=== PATIENT | male | born 1990 | race Caucasian/White ===

== ENCOUNTER → 2018-05-19 10:17 | Outpatient (CLI) | payer MEDICAID, SELFPAY ==
[2018-05-19 11:42] LABS: Hemoglobin A1c 10.6 % (4.2-6.3)
[2018-05-19 11:56] LABS: ALB/GLOB Ratio 0.9 RATIO (0.9-2.4); AST(SGOT) 18 U/L (15-37); Alanine Aminotransfer ALT/SGPT 20 U/L (16-61); Albumin, Serum 3.6 g/dL (3.2-5.0); Alkaline Phosphatase 127 U/L (45-117); Anion Gap 9 (5-15); BUN 15 mg/dL (7-18); BUN/Creat Ratio 13.2 RATIO (10-20); Calcium,Total 9.4 mg/dL (8.5-10.1); Chloride 104 mmol/L (98-107); Cholesterol 198 mg/dL (200); Creatinine, Serum 1.14 mg/dL (0.70-1.30); EST Glomerular Filtration Rate 83 mL/min (>60); Est Glom Filt Rate - Afr Amer 100 mL/min (>60); Globulin 4.2 g/dL (2.2-4.2); Glucose 102 mg/dL (74-106); High Density Lipoprotein 41 mg/dL; Potassium 4.5 mmol/L (3.5-5.1); Protein, Total 7.8 g/dL (6.4-8.2); Sodium Level 143 mmol/L (136-145); Thyroid Stim Hormone (TSH) 2.51 uIU/mL (0.358-3.74); Triglycerides 160 mg/dL; Very Low Density Lipoprotein 32 mg/dL (5-40)
[2018-05-19 11:59] LABS: Microalbumin:Creatinine Ratio 1037.5 mg/g CRE (<30 mg/g CRE)
== END ==
PROVIDERS: Visit Provider Nurse Practitioner
DX: E10.65 Type 1 diabetes mellitus with hyperglycemia (principal); E10.69 Type 1 diabetes mellitus with other specified complication; E78.5 Hyperlipidemia, unspecified; I10 Essential (primary) hypertension
CPT/HCPCS: 36415; 80053; 80061; 82043; 82570; 83036; 84443

== ENCOUNTER → 2018-07-30 09:49 | Outpatient (CLI) | payer MEDICAID, SELFPAY ==
[2018-07-30 10:54] LABS: ALB/GLOB Ratio 0.7 RATIO (0.9-2.4); AST(SGOT) 16 U/L (15-37); Alanine Aminotransfer ALT/SGPT 22 U/L (16-61); Albumin, Serum 3.1 g/dL (3.2-5.0); Alkaline Phosphatase 140 U/L (45-117); Anion Gap 9 (5-15); BUN 16 mg/dL (7-18); BUN/Creat Ratio 12.3 RATIO (10-20); Calcium,Total 8.9 mg/dL (8.5-10.1); Chloride 101 mmol/L (98-107); EST Glomerular Filtration Rate 71 mL/min (>60); Est Glom Filt Rate - Afr Amer 86 mL/min (>60); Globulin 4.3 g/dL (2.2-4.2); Glucose 357 mg/dL (74-106); Potassium 4.9 mmol/L (3.5-5.1); Protein, Total 7.4 g/dL (6.4-8.2); Sodium Level 137 mmol/L (136-145); Thyroid Stim Hormone (TSH) 3.35 uIU/mL (0.358-3.74)
== END ==
PROVIDERS: Visit Provider Nurse Practitioner
DX: E10.65 Type 1 diabetes mellitus with hyperglycemia (principal); Z79.4 Long term (current) use of insulin
CPT/HCPCS: 36415; 80053; 84443

== ENCOUNTER → 2018-11-06 09:44 | Outpatient (CLI) | payer MEDICAID, SELFPAY ==
[2018-11-06 09:14] VITALS: BMI 26.8
[2018-11-06 11:21] LABS: ALB/GLOB Ratio 0.9 RATIO (0.9-2.4); AST(SGOT) 17 U/L (15-37); Alanine Aminotransfer ALT/SGPT 18 U/L (16-61); Albumin, Serum 3.1 g/dL (3.2-5.0); Alkaline Phosphatase 126 U/L (45-117); Anion Gap 7 (5-15); BUN 18 mg/dL (7-18); BUN/Creat Ratio 14.1 RATIO (10-20); Calcium,Total 8.7 mg/dL (8.5-10.1); Chloride 104 mmol/L (98-107); Creatinine, Serum 1.28 mg/dL (0.70-1.30); EST Glomerular Filtration Rate 72 mL/min (>60); Est Glom Filt Rate - Afr Amer 87 mL/min (>60); Globulin 3.5 g/dL (2.2-4.2); Glucose 361 mg/dL (74-106); Potassium 3.8 mmol/L (3.5-5.1); Protein, Total 6.6 g/dL (6.4-8.2); Sodium Level 139 mmol/L (136-145)
[2018-11-06 11:22] LABS: Hemoglobin A1c 9.9 % (4.2-6.3)
[2018-11-06 11:33] LABS: Microalbumin:Creatinine Ratio 4661.6 mg/g CRE (<30 mg/g CRE)
[2018-11-06 15:53] LABS: Bacteria 0 SEEN /hpf (None Seen); Mucous, Urine 0 SEEN /hpf (<or=2+); Squamous Epithelial Cells - UA 0 SEEN /hpf (0-5); White Blood Cells 0 SEEN /hpf (0-5)
[2018-11-06 16:50] LABS: Color, Urine Straw (Yellow); Glucose, Dipstick 1000 mg/dl (Normal); Ketone-Dipstick Negative (Negative); Leukocyte Esterase-Dipstick Negative /ul (Negative); Nitrite-Dipstick Negative (Negative); Occult Blood-Urine 250 /ul (Negative); Protein-Dipstick 100 mg/dl (Negative); Specific Gravity, Urine 1.005 (1.002-1.030); Urine Bilirubin Dipstick Negative (Negative); Urine Clarity Clear (Clear); Urine Urobilinogen Normal (Normal)
[2018-11-06 18:31] LABS: Red Blood Cells-Urine 10-25 SEEN /hpf (0-5)
== END ==
PROVIDERS: Referring Provider Nurse Practitioner; Visit Provider Nurse Practitioner
DX: E10.65 Type 1 diabetes mellitus with hyperglycemia (principal); R80.9 Proteinuria, unspecified
CPT/HCPCS: 36415; 80053; 81001; 82043; 82570; 83036

== ENCOUNTER → 2021-09-26 14:26 | Outpatient (CLI) | payer MEDICAID, SELFPAY ==
[2021-09-26 17:14] LABS: Vitamin D,25 Hydroxy 10.6 ng/mL
[2021-09-26 17:21] LABS: ALB/GLOB Ratio 0.6 RATIO (0.9-2.4); AST(SGOT) 22 U/L (15-37); Alanine Aminotransfer ALT/SGPT 25 U/L (16-61); Albumin, Serum 2.8 g/dL (3.2-5.0); Alkaline Phosphatase 149 U/L (45-117); Anion Gap 6 (5-15); BUN 22 mg/dL (7-18); BUN/Creat Ratio 9.6 RATIO (10-20); Calcium,Total 9.2 mg/dL (8.5-10.1); Chloride 106 mmol/L (98-107); Cholesterol 207 mg/dL (200); Creatinine, Serum 2.29 mg/dL (0.70-1.30); EST Glomerular Filtration Rate 36 mL/min (>60); Est Glom Filt Rate - Afr Amer 44 mL/min (>60); Globulin 4.8 g/dL (2.2-4.2); Glucose 153 mg/dL (74-106); High Density Lipoprotein 61 mg/dL; Potassium 5.1 mmol/L (3.5-5.1); Protein, Total 7.6 g/dL (6.4-8.2); Sodium Level 139 mmol/L (136-145); Thyroid Stim Hormone (TSH) 1.32 uIU/mL (0.358-3.74); Triglycerides 91 mg/dL; Very Low Density Lipoprotein 18 mg/dL (5-40)
[2021-09-28 08:43] LABS: Thyroid Peroxidase AB 9 IU/mL (0-34)
== END ==
PROVIDERS: Referring Provider Internal Medicine Endocrinology, Diabetes & Metabolism; Visit Provider Internal Medicine Endocrinology, Diabetes & Metabolism
DX: E10.65 Type 1 diabetes mellitus with hyperglycemia (principal); E55.9 Vitamin D deficiency, unspecified; I10 Essential (primary) hypertension
CPT/HCPCS: 36415; 80053; 80061; 82043; 82306; 82570; 84443; 86376

== ENCOUNTER 2022-01-18 13:39 | Outpatient (CLI) | payer MEDICAID, SELFPAY ==
[2022-01-18 15:40] LABS: ALB/GLOB Ratio 0.8 RATIO (0.9-2.4); AST(SGOT) 44 U/L (15-37); Alanine Aminotransfer ALT/SGPT 64 U/L (16-61); Albumin, Serum 3.3 g/dL (3.2-5.0); Alkaline Phosphatase 171 U/L (45-117); Anion Gap 4 (5-15); BUN 34 mg/dL (7-18); BUN/Creat Ratio 12.5 RATIO (10-20); Calcium,Total 9.6 mg/dL (8.5-10.1); Chloride 107 mmol/L (98-107); Creatinine, Serum 2.73 mg/dL (0.70-1.30); EST Glomerular Filtration Rate 29 mL/min (>60); Est Glom Filt Rate - Afr Amer 36 mL/min (>60); Globulin 4.4 g/dL (2.2-4.2); Glucose 163 mg/dL (74-106); Potassium 5.1 mmol/L (3.5-5.1); Protein, Total 7.7 g/dL (6.4-8.2); Sodium Level 137 mmol/L (136-145)
== END 2022-01-18 23:59 | disposition home or self-care (01) ==
LOC: BIMLAB 13:40
PROVIDERS: Referring Provider Nurse Practitioner Family; Visit Provider Nurse Practitioner Family
DX: E10.22 Type 1 diabetes mellitus with diabetic chronic kidney disease (principal); E10.65 Type 1 diabetes mellitus with hyperglycemia; N18.30 Chronic kidney disease, stage 3 unspecified
CPT/HCPCS: 36415; 80053

== ENCOUNTER 2022-07-25 13:23 | Emergency (ER) | payer MEDICAID, SELFPAY ==
[2022-07-25 13:24] VITALS: BP 177/117; PULSE 119; RESP 16; TEMP 36.8; O2SAT 100; BMI 22.9
--- NOTE | 2022-07-25 13:47 | EX.ED.DYSGE1 ---
HPI History of Present Illness Chief Complaint: Hyperglycemia Informant: patient Onset/Context/Timing Onset: Weeks (1) Context: Gradual Onset Timing: Continuous Quality: thirsty, polyuria Current Severity: Moderate Maximum Severity: Moderate Worsened by: nothing Relieved by: nothing despite insulin boluses and drinking water Associated Symptoms Associated Symptoms: none Narrative Narrative: Patient presenting with hyperglycemia over 600 today. He was seen in endocrinology because for the last month he has not had a wireless blood sugar transmitter. He does have an insulin pump, usually works automatically off of the transmitter data, and since he has not had this he has been doing manual boluses with the pump. For the last week he has had symptoms of high blood sugar. He denies any dyspnea or nausea/vomiting, fevers, or other illness. He got a new wireless transmitter placed in the office today prior to being sent here. [facility] Medical History Anxiety with depression Bone fracture Diabetes mellitus type 1 High cholesterol HTN (hypertension) Neuropathy Persistent microalbuminuria due to type 1 diabetes mellitus Stage 3 chronic kidney disease due to type 1 diabetes mellitus Stomach ulcer Vision problem Vitamin deficiency Home Medications ademlog See Rx Instructions subcut .COMPLEX #20 mL 05/19/18 [Rx Last Taken Unknown] blood sugar diagnostic (OneTouch Ultra Blue Test Strip) #120 ea 07/09/18 [Rx Last Taken Unknown] FreeStyle Sharonda 14 Day Sensor (flash glucose sensor) #2 ea 09/26/21 [Rx Last Taken Unknown] insulin aspart U-100 100 unit/mL (3 mL) subcutaneous pen (Novolog Flexpen U-100 Insulin aspart) 15 unit (0.15 mL) subcut TID #15 mL 09/26/21 [Rx Last Taken Unknown] losartan 25 mg tablet 25 mg PO 09/26/21 [History Last Taken Unknown] pen needle, diabetic 32 gauge x 5/32 (BD Ultra-Fine Kalie Pen Needle) #150 ea 09/26/21 [Rx Last Taken Unknown] Levemir FlexTouch U-100 Insuln 100 unit/mL (3 mL) subcutaneous pen (insulin detemir U-100) 18 unit (0.18 mL) subcut QHS #15 mL 10/29/21 [Rx Last Taken Unknown] amlodipine 10 mg tablet 10 mg PO DAILY #90 tabs 01/18/22 [Rx Last Taken Unknown] cholecalciferol (vitamin D3) 1,250 mcg (50,000 unit) capsule 1,250 mcg PO QWEEK #24 caps 01/18/22 [Rx Last Taken Unknown] insulin aspart U-100 100 unit/mL subcutaneous solution (Novolog U-100 Insulin aspart) 100 unit continuous subcutaneous infusion .continuous #30 mL 02/15/22 [Rx Last Taken Unknown] metoprolol succinate 25 mg tablet,extended release 24 hr 25 mg PO DAILY #90 tabs 07/25/22 [Rx Last Taken Unknown] Allergy/AdvReac Type Severity Reaction Status Date / Time shellfish derived Allergy Swelling Verified 07/25/22 13:24 sulfamethoxazole Allergy Itching Verified 07/25/22 13:24 [From Bactrim] trimethoprim [From Bactrim] Allergy Itching Verified 07/25/22 13:24 Family History Unknown Arthritis Diabetes Hypertension High cholesterol Kidney stones Grandmother Diabetes Other Alcohol abuse Surgical History History of tonsillectomy L femur repair Social History Smoking Status: Current every day smoker tobacco type: cigarettes Tobacco: How many years used: 13 alcohol intake: never substance use type: does not use what type of physical activity do you participate in: none ROS ROS ED Constitutional Constitutional ED: Denies chills or fever(s) Eyes Eyes: Denies change in vision or diplopia ENT ENT ED: Denies rhinorrhea or sore throat Cardiovascular Cardiovascular: Denies chest pain or palpitations Respiratory/Chest Respiratory/Chest: Denies cough or dyspnea Gastrointestinal Gastrointestinal: Denies abdominal pain, diarrhea, nausea or vomiting Genitourinary Genitourinary ED: Denies dysuria or hematuria Musculoskeletal Musculoskeletal: Denies back pain or neck pain Integumentary Denies abscess or rash Neurologic Neurologic: Denies headache(s), paresthesias or weakness Psychiatric Psychiatric: Denies anxiety or suicidal thoughts Endocrine Endocrinology: Reports polydipsia and polyuria EXAM Physical Exam Const Vital Signs: 07/25/22 13:24 07/25/22 14:22 Temperature 98.2 F Temperature Source Temporal Pulse Rate 119 H Respiratory Rate 16 Respiratory Effort Normal Non-Labored Respiratory Pattern Normal Blood Pressure 177/117 H Blood Pressure Mean 137 Pulse Ox 100 Oxygen Delivery Method Room Air Positive well nourished and well developed General Appearance ED: well developed and NAD HEENT Reports moist mucous membranes normocephalic and atraumatic Eyes PERRL and EOMs intact bilaterally Neck full ROM and supple Resp normal respiratory effort and clear to auscultation bilaterally Cardio regular rate, regular rhythm and no murmurs Rate: tachycardic GI non-tender and non-distended Auscultation: normoactive bowel sounds Palpation: soft Back/Spine no CVA tenderness General Back: other FROM Extremity normal to inspection General Extremety ED: Negative for edema, pulses abnormal or tenderness General Extremity: Negative for edema or pulses abnormal Neuro oriented x3, CN's II-XII intact bilaterally and no sensory deficits noted Sensorium / Orientation: awake and alert Motor Exam: strength 5/5 throughout Skin no rashes or lesions noted and no wounds MDM MDM MDM Narrative Medical decision making narrative: Labs show that the patient's glucose is in the 240-290 range. Therefore prior to starting it, the insulin drip was discontinued, he does not have an elevated anion gap or low bicarbonate, he was given a liter of IV fluids, and discharged home, he is comfortable bolusing himself with insulin as his pump now works automatically. Lab Data Attestation: I reviewed the patient's lab results. Labs: Laboratory Results - last 24 hr 07/25/22 07/25/22 13:53 14:03 Sodium 140 Potassium 4.3 Chloride 107 Carbon Dioxide 23.0 Anion Gap 10 BUN 40 H Creatinine 3.44 H Estim Creat Clear Calc 26.29 Est GFR (MDRD) Af Amer 27 L Est GFR (MDRD) Non-Af 22 L BUN/Creatinine Ratio 11.6 Glucose 287 H Calcium 9.5 POC Glucose 247 H Discharge Plan Triage Chief Complaint: Hyperglycemia ED Provider: Rufus Barnhart Dx/Rx/DC Orders Clinical Impression: Hyperglycemia due to type 1 diabetes mellitus, Uncontrolled type 1 diabetes mellitus, with long-term current use of insulin, CKD (chronic kidney disease) stage 4, GFR 15-29 ml/min Instructions: ED Diabetic Hyperglycemia Prescriptions: No Action ademlog See Rx Instructions SC .COMPLEX Qty: 20 11RF Dose Instruction: SC Rx Instructions: Takes 15-20 units each meal three times daily losartan 25 mg tablet 25 mg PO insulin aspart U-100 [Novolog Flexpen U-100 Insulin] 100 unit/mL (3 mL) insulin pen 15 unit subcut TID MDD 60 Qty: 15 5RF (DME) pen needle, diabetic [BD Ultra-Fine Kalie Pen Needle] 32 gauge x 5/32 needle See Rx Instructions .ROUTE .MEDSUPPLY Qty: 150 5RF Rx Instructions: 5 times daily (DME) FreeStyle Sharonda 14 Day Sensor Kit See Rx Instructions .ROUTE .MEDSUPPLY Qty: 2 6RF Rx Instructions: As directed cholecalciferol (vitamin D3) 1,250 mcg (50,000 unit) capsule 1,250 mcg PO QWEEK Qty: 24 0RF amlodipine 10 mg tablet 10 mg PO DAILY Qty: 90 3RF metoprolol succinate 25 mg tablet extended release 24 hr 25 mg PO DAILY Qty: 90 1RF (DME) blood sugar diagnostic [OneTouch Ultra Blue Test Strip] strip See Dose Instructions .ROUTE .MEDSUPPLY Qty: 120 11RF Dose Instruction: As directed Rx Instructions: use to check BG 4 x qd Levemir FlexTouch U-100 Insuln 100 unit/mL (3 mL) insulin pen 18 unit subcut QHS Qty: 15 5RF insulin aspart U-100 [Novolog U-100 Insulin aspart] 100 unit/mL solution 100 unit continuous subcutaneous infusion .continuous MDD 100 Qty: 30 6RF Primary Care Provider: Holley Roach Referrals: Holley Roach MD [Primary Care Provider] - As Needed (And/or your it intern) Disposition Disposition: Home, Self Care
[2022-07-25] MEDS: 0.9% Normal Saline 1,000 ML 999 ML IV (14:00)
--- NOTE | 2022-07-25 14:10 | ED.RN ---
had pt turn off insulin pump due to, pt we were going to hand insulin drip. Bs 247. notified Dr. Barnhart. of pt's BS. gave order to hang NS fluids, turn insulin pump back on and check BS after fluids.
[2022-07-25 14:20] LABS: Anion Gap 10 (5-15); BUN 40 mg/dL (7-18); BUN/Creat Ratio 11.6 RATIO (10-20); Calcium,Total 9.5 mg/dL (8.5-10.1); Chloride 107 mmol/L (98-107); Creatinine, Serum 3.44 mg/dL (0.70-1.30); EST Glomerular Filtration Rate 22 mL/min (>60); Est Glom Filt Rate - Afr Amer 27 mL/min (>60); Estimated Creatinine Clearance 26.29 ml/min; Glucose 287 mg/dL (74-106); Potassium 4.3 mmol/L (3.5-5.1); Sodium Level 140 mmol/L (136-145)
[2022-07-25 14:20] LABS: Bedside Glucose 247 mg/dL (74-106)
--- NOTE | 2022-07-25 15:18 | ED.RN ---
pt's BS 64, gave food. notified Dr. Barnhart of this.
[2022-07-25 15:31] LABS: Bedside Glucose 64 mg/dL (74-106)
[2022-07-25 16:06] LABS: Bedside Glucose 55 mg/dL (74-106)
[2022-07-25 16:30] LABS: Bedside Glucose 126 mg/dL (74-106)
== END 2022-07-25 16:17 | disposition home or self-care (01) ==
PROVIDERS: Emergency Provider Emergency Medicine; PCP Internal Medicine; Visit Provider Emergency Medicine
DX: E10.65 Type 1 diabetes mellitus with hyperglycemia (principal); E10.40 Type 1 diabetes mellitus with diabetic neuropathy, unspecified; E10.22 Type 1 diabetes mellitus with diabetic chronic kidney disease; N18.4 Chronic kidney disease, stage 4 (severe); Z79.4 Long term (current) use of insulin; F41.8 Other specified anxiety disorders; E78.00 Pure hypercholesterolemia, unspecified; I12.9 Hypertensive chronic kidney disease with stage 1 through stage 4 chronic kidney disease, or unspecified chronic kidney disease; Z87.19 Personal history of other diseases of the digestive system; Z79.899 Other long term (current) drug therapy
CPT/HCPCS: 36415; 80048; 80053; 82962; 96360; 99283; A4216

== ENCOUNTER → 2022-07-25 | Outpatient (CLI) | payer MEDICAID, SELFPAY ==
[2022-07-25 12:30] LABS: ALB/GLOB Ratio 0.8 RATIO (0.9-2.4); AST(SGOT) 22 U/L (15-37); Alanine Aminotransfer ALT/SGPT 32 U/L (16-61); Albumin, Serum 3.5 g/dL (3.2-5.0); Alkaline Phosphatase 140 U/L (45-117); Anion Gap 8 (5-15); BUN 39 mg/dL (7-18); BUN/Creat Ratio 10.9 RATIO (10-20); Chloride 101 mmol/L (98-107); Creatinine, Serum 3.57 mg/dL (0.70-1.30); EST Glomerular Filtration Rate 22 mL/min (>60); Est Glom Filt Rate - Afr Amer 26 mL/min (>60); Globulin 4.3 g/dL (2.2-4.2); Glucose 685 mg/dL (74-106); Potassium 4.9 mmol/L (3.5-5.1); Protein, Total 7.8 g/dL (6.4-8.2); Sodium Level 134 mmol/L (136-145)
== END | disposition home or self-care (01) ==
LOC: LAB 10:19
PROVIDERS: PCP Internal Medicine; Referring Provider Nurse Practitioner Family; Visit Provider Nurse Practitioner Family
DX: E10.22 Type 1 diabetes mellitus with diabetic chronic kidney disease (principal); E10.65 Type 1 diabetes mellitus with hyperglycemia; N18.4 Chronic kidney disease, stage 4 (severe); I12.9 Hypertensive chronic kidney disease with stage 1 through stage 4 chronic kidney disease, or unspecified chronic kidney disease
CPT/HCPCS: 36415; 80053

== ENCOUNTER → 2022-12-12 | Outpatient (CLI) | payer MEDICAID, SELFPAY ==
[2022-12-14 15:09] LABS: Cytoplasmic Ab (C-ANCA) <1:20 titer (Neg:<1:20); PROEL- A/G Ratio 1.2 (0.7-1.7); PROEL- Albumin 3.6 g/dL (2.9-4.4); PROEL- Alpha-1 Globulin 0.3 g/dL (0.0-0.4); PROEL- Beta Globulin 0.8 g/dL (0.7-1.3); PROEL- Globulin, Total 3.1 g/dL (2.2-3.9); PROEL- TOTAL PROTEIN 6.7 g/dL (6.0-8.5)
[2022-12-14 20:11] LABS: Anti-dsDNA Ab <1 IU/mL (0-9); Complement C3 112 mg/dL (82-167); Perinuclear Ab (P-ANCA) <1:20 titer (Neg:<1:20)
== END | disposition home or self-care (01) ==
LOC: LAB 14:42
PROVIDERS: PCP Internal Medicine; Referring Provider Internal Medicine Nephrology; Visit Provider Internal Medicine Nephrology
DX: R80.9 Proteinuria, unspecified (principal)
CPT/HCPCS: 36415; 84165; 86160; 86225; 86256

== ENCOUNTER → 2022-12-15 | Outpatient (CLI) | payer MEDICAID, SELFPAY ==
--- NOTE | 2022-12-15 11:23 | US_ITS ---
STUDY: RENAL ULTRASOUND - COMPLETE REASON FOR EXAM: Male, 32 years old. Elevated BUN/creatinine TECHNIQUE: Ultrasound evaluation of the kidneys was performed with real-time and static hays-scale imaging. COMPARISON: None. FINDINGS: RIGHT KIDNEY: Normal location of the right kidney, which is normal in size. The right kidney measures 10.4 x 5.1 x 6.4 cm. There is a normal cortex of the right kidney. The renal cortex measures 1.8 cm. There is a simple 2.2 cm cyst. There are no right renal calculi. There is no right hydronephrosis. DISTAL RIGHT URETER: There is non-visualization of the distal right ureter. There is no demonstrated right ureterovesical junction calculus. There is a visualized right ureteral jet. LEFT KIDNEY: Normal location of the left kidney, which is normal in size. The left kidney measures 10.5 x 4.1 x 5.6 cm. There is a normal cortex of the left kidney. The renal cortex measures 1.8 cm. There is a simple 2.7 cm cyst. There are no left renal calculi. There is no left hydronephrosis. DISTAL LEFT URETER: There is non-visualization of the distal left ureter. There is no demonstrated left ureterovesical junction calculus. There is a visualized left ureteral jet. AORTA: There is no elongation or tortuosity of the abdominal aorta. I.V.C.: The IVC is patent. BLADDER: The bladder was incompletely distended US/Kidney and Bladder IMPRESSION: No suspicious sonographic findings, simple bilateral renal cysts, no specific follow-up needed Electronically Signed: Davis Caicedo MD at 12:11 EST ,
== END | disposition home or self-care (01) ==
PROVIDERS: PCP Internal Medicine; Visit Provider Internal Medicine Nephrology
DX: N18.31 Chronic kidney disease, stage 3a (principal)
CPT/HCPCS: 76770

== ENCOUNTER → 2022-12-21 | Outpatient (CLI) | payer MEDICAID, SELFPAY ==
--- NOTE | 2022-12-21 13:57 | STRESSREP_ITS ---
Stress Test Report Date: 12/21/2022 Procedure: Pharmacologic stress nuclear imaging study Indications: Hypertension Consent: Per the patient Procedure: The patient initially tried exercise stress however he could not complete the Padilla protocol secondary to leg discomfort. The test was therefore switched to Lexiscan stress Myoview. The patient underwent pharmacologic (Regadenoson 0.4mg ) evaluation with a peak heart rate of 101 beats per minute (53%predicted maximal heart rate) and a peak blood pressure of 132/84 mmHg. The baseline ECG demonstrated normal sinus rhythm. The peak pharmacologic ECG demonstrated no ischemic change. There were no cardiac dysrhythmias pretest, during pharmacologic infusion, or recovery. There was no complaint of chest discomfort during pharmacologic infusion or recovery. The patient was injected with 11.3 millicuries of technetium 99m Cardiolite and subsequently rest SPECT Cardiolite nuclear imaging was obtained in the horizontal long, vertical long, and short axis views. The patient underwent pharmacologic (Regadenoson) evaluation. The patient was injected with 33.9 millicuries of technetium 99m Cardiolite and subsequently stress SPECT Cardiolite nuclear imaging was obtained in the horizontal long, vertical long, and short axis views. A gated Cardiolite study at peak stress was obtained. The examination was stopped secondary to completion of protocol. Rest and stress SPECT Cardiolite nuclear imaging status post realignment, normalization, and attenuation correction demonstrate no resting or Lexiscan induced perfusion defects. There is end systolic thickening and brightening. The gated Cardiolite study demonstrates myocardial thickening and inward wall motion. The reported LVEF is 69%. Impression: 1. Pharmacologic (Regadenoson) evaluation 2. Peak pharmacologic ECG with no ischemic changes. 3. There were no cardiac dysrhythmias pretest, during pharmacologic infusion, or recovery. 5. No fixed or reversible perfusion defects. 6. The gated Cardiolite study reports an LVEF of 69%. This note was generated with [employer] software. It may contain incorrect words, spelling, and punctuation that were not noted in checking the note before signing.
== END | disposition home or self-care (01) ==
PROVIDERS: PCP Internal Medicine; Referring Provider Internal Medicine; Visit Provider Internal Medicine
DX: I10 Essential (primary) hypertension (principal); E10.9 Type 1 diabetes mellitus without complications; F17.210 Nicotine dependence, cigarettes, uncomplicated
CPT/HCPCS: 78452; 93017; A9500; A4216; J2785

== ENCOUNTER → 2023-01-03 | Outpatient (CLI) | payer MEDICAID, SELFPAY ==
[2023-01-03 12:40] LABS: Absolute Lymphocyte Count 3.45 X10^3/uL (0.83-4.51); Absolute Neutrophil Count 4.9 X10^3/uL (2.0-7.7); Basophil# 0.15 X10^3/uL; Basophil% 1.5 % (0-1); Eosinophil# 0.57 X10^3/uL; Eosinophils% 5.8 % (0-5); Hematocrit 36.3 % (40-54); Hemoglobin 11.9 g/dL (13.0-16.5); Lymphocyte # 3.45 X10^3/ul (0.83-4.51); Lymphocyte % 35.2 % (19-41); Mean Corp Hgb Conc 32.8 g/dL (32-36); Mean Corpuscular Hgb 29.4 pg (27.0-32.0); Mean Corpuscular Volume 89.6 fL (80-94); Mean Platelet Vol. 10.7 fl (6.2-12.0); Monocyte# 0.75 X10^3/uL; Monocyte% 7.7 % (0-10); NRBC Flagged by Analyzer 0 % (0-5); Neutrophil # 4.86 X10^3/uL (2.7-7.7); Neutrophil % 49.6 % (47-70); Platelet Count 339 K/mm3 (150-450); RBC Distribution Width CV 13.8 % (11.6-14.6); RBC Distribution Width SD 45.5 fl (35.1-43.9); Red Blood Count 4.05 M/mm3 (4.6-6.2); White Blood Count 9.8 K/mm3 (4.4-11.0)
[2023-01-03 13:25] LABS: ALB/GLOB Ratio 0.9 RATIO (0.9-2.4); AST(SGOT) 18 U/L (15-37); Alanine Aminotransfer ALT/SGPT 21 U/L (16-61); Albumin, Serum 3.6 g/dL (3.2-5.0); Alkaline Phosphatase 116 U/L (45-117); Anion Gap 6 (5-15); BUN 30 mg/dL (7-18); BUN/Creat Ratio 9.3 RATIO (10-20); Calcium,Total 9.1 mg/dL (8.5-10.1); Chloride 111 mmol/L (98-107); Cholesterol 167 mg/dL (200); Creatinine, Serum 3.22 mg/dL (0.70-1.30); EST Glomerular Filtration Rate 24 mL/min (>60); Est Glom Filt Rate - Afr Amer 29 mL/min (>60); Globulin 4.1 g/dL (2.2-4.2); Glucose 80 mg/dL (74-106); High Density Lipoprotein 52 mg/dL; Magnesium 2.2 mg/dL (1.6-2.6); Potassium 4.6 mmol/L (3.5-5.1); Protein, Total 7.7 g/dL (6.4-8.2); Sodium Level 140 mmol/L (136-145); Thyroid Stim Hormone (TSH) 3.24 uIU/mL (0.358-3.74); Triglycerides 115 mg/dL; Very Low Density Lipoprotein 23 mg/dL (5-40)
[2023-01-03 16:01] LABS: Iron 124 ug/dL (65-175); Iron Binding Capacity,Total 296 ug/dL (250-450); PERCENT IRON SATURATION 41.9 % (15.0-55.0)
== END | disposition home or self-care (01) ==
LOC: LAB 10:57
PROVIDERS: PCP Internal Medicine; Referring Provider Internal Medicine; Visit Provider Internal Medicine
DX: Z13.220 Encounter for screening for lipoid disorders (principal); E10.22 Type 1 diabetes mellitus with diabetic chronic kidney disease; N18.4 Chronic kidney disease, stage 4 (severe); E55.9 Vitamin D deficiency, unspecified; D64.9 Anemia, unspecified; I12.9 Hypertensive chronic kidney disease with stage 1 through stage 4 chronic kidney disease, or unspecified chronic kidney disease
CPT/HCPCS: 36415; 80053; 80061; 82306; 83540; 83550; 83735; 84443; 85025

== ENCOUNTER → 2023-03-27 | Outpatient (CLI) | payer MEDICAID, SELFPAY ==
[2023-03-29 15:08] LABS: Complement C3 117 mg/dL (82-167); Cytoplasmic Ab (C-ANCA) <1:20 titer (Neg:<1:20); PROEL- Albumin 3.4 g/dL (2.9-4.4); PROEL- Alpha-1 Globulin 0.3 g/dL (0.0-0.4); PROEL- Alpha-2 Globulin 1.2 g/dL (0.4-1.0); PROEL- Beta Globulin 0.9 g/dL (0.7-1.3); PROEL- Gamma Globulin 1.1 g/dL (0.4-1.8); PROEL- Globulin, Total 3.4 g/dL (2.2-3.9); PROEL- TOTAL PROTEIN 6.8 g/dL (6.0-8.5); Perinuclear Ab (P-ANCA) <1:20 titer (Neg:<1:20)
[2023-03-29 16:10] LABS: Anti-dsDNA Ab <1 IU/mL (0-9)
== END | disposition home or self-care (01) ==
LOC: LAB 12:24
PROVIDERS: PCP Internal Medicine; Referring Provider Internal Medicine Nephrology; Visit Provider Internal Medicine Nephrology
DX: R80.9 Proteinuria, unspecified (principal)
CPT/HCPCS: 36415; 84165; 86160; 86225; 86256

== ENCOUNTER → 2023-07-11 | Outpatient (CLI) | payer MEDICAID, SELFPAY ==
[2023-07-11 12:08] LABS: Hematocrit 38.5 % (40-54); Hemoglobin 12.5 g/dL (13.0-16.5); Mean Corp Hgb Conc 32.5 g/dL (32-36); Mean Corpuscular Hgb 29.1 pg (27.0-32.0); Mean Corpuscular Volume 89.7 fL (80-94); Platelet Count 258 K/mm3 (150-450); RBC Distribution Width CV 13.2 % (11.6-14.6); RBC Distribution Width SD 43.5 fl (35.1-43.9); Red Blood Count 4.29 M/mm3 (4.6-6.2); White Blood Count 7.4 K/mm3 (4.4-11.0)
[2023-07-11 12:26] LABS: Protein, Urine (Random) 215.7 mg/dL (<11.9); Protein:Creat Ratio 2339 mg/g CRE (0-200)
[2023-07-11 12:46] LABS: PTHIN 189.7 pg/mL (18.4-80.1)
[2023-07-11 12:52] LABS: Albumin, Serum 3.9 g/dL (3.2-5.0); BUN 33 mg/dL (7-18); Calcium,Total 9.3 mg/dL (8.5-10.1); Chloride 112 mmol/L (98-107); Creatinine, Serum 3.68 mg/dL (0.70-1.30); EST Glomerular Filtration Rate 21 mL/min (>60); Est Glom Filt Rate - Afr Amer 25 mL/min (>60); Glucose 145 mg/dL (74-106); Potassium 4.4 mmol/L (3.5-5.1); Sodium Level 140 mmol/L (136-145)
[2023-07-11 12:53] LABS: Vitamin D,25 Hydroxy 49.8 ng/mL
[2023-07-12 15:08] LABS: Free Kappa Light Chains 90.2 mg/L (3.3-19.4); Free Lambda Light Chains 50.3 mg/L (5.7-26.3)
== END | disposition home or self-care (01) ==
LOC: LAB 11:38
PROVIDERS: PCP Internal Medicine; Referring Provider Internal Medicine Nephrology; Visit Provider Internal Medicine Nephrology
DX: N18.4 Chronic kidney disease, stage 4 (severe) (principal)
CPT/HCPCS: 36415; 80069; 82306; 82570; 83883; 83970; 84156; 85027

== ENCOUNTER → 2023-10-04 | Outpatient (CLI) | payer MEDICAID, SELFPAY ==
[2023-10-04 12:25] LABS: Absolute Lymphocyte Count 1.55 X10^3/uL (0.83-4.51); Absolute Neutrophil Count 4.8 X10^3/uL (2.0-7.7); Basophil# 0.05 X10^3/uL; Basophil% 0.7 % (0-1); Eosinophil# 0.15 X10^3/uL; Eosinophils% 2.1 % (0-5); Hematocrit 30.9 % (40-54); Hemoglobin 9.9 g/dL (13.0-16.5); Lymphocyte # 1.55 X10^3/ul (0.83-4.51); Lymphocyte % 22.1 % (19-41); Mean Corpuscular Hgb 29.9 pg (27.0-32.0); Mean Corpuscular Volume 93.4 fL (80-94); Mean Platelet Vol. 9.6 fl (6.2-12.0); Monocyte# 0.48 X10^3/uL; Monocyte% 6.9 % (0-10); NRBC Flagged by Analyzer 0 % (0-5); Neutrophil # 4.75 X10^3/uL (2.7-7.7); Neutrophil % 67.9 % (47-70); Platelet Count 474 K/mm3 (150-450); RBC Distribution Width CV 13.7 % (11.6-14.6); RBC Distribution Width SD 46.5 fl (35.1-43.9); Red Blood Count 3.31 M/mm3 (4.6-6.2)
[2023-10-04 12:29] LABS: Protein:Creat Ratio 4798 mg/g CRE (0-200)
[2023-10-04 13:04] LABS: Albumin, Serum 2.6 g/dL (3.2-5.0); BUN 27 mg/dL (7-18); BUN/Creat Ratio 7.9 RATIO (10-20); Calcium,Total 8.7 mg/dL (8.5-10.1); Chloride 115 mmol/L (98-107); Creatinine, Serum 3.43 mg/dL (0.70-1.30); EST Glomerular Filtration Rate 22 mL/min (>60); Est Glom Filt Rate - Afr Amer 27 mL/min (>60); Glucose 87 mg/dL (74-106); Phosphorus 3.7 mg/dL (2.5-4.9); Potassium 5.4 mmol/L (3.5-5.1); Sodium Level 141 mmol/L (136-145)
[2023-10-07 17:07] LABS: Free Kappa Light Chains 99.4 mg/L (3.3-19.4); Free Lambda Light Chains 70.4 mg/L (5.7-26.3)
== END | disposition home or self-care (01) ==
LOC: LAB 11:38
PROVIDERS: PCP Internal Medicine; Referring Provider Internal Medicine Nephrology; Visit Provider Internal Medicine Nephrology
DX: N18.4 Chronic kidney disease, stage 4 (severe) (principal)
CPT/HCPCS: 36415; 80069; 82306; 82570; 83883; 84156; 85025

== ENCOUNTER → 2024-01-06 | Outpatient (CLI) | payer MEDICAID, SELFPAY ==
[2024-01-06 11:41] LABS: Absolute Lymphocyte Count 2.59 X10^3/uL (0.83-4.51); Absolute Neutrophil Count 3.2 X10^3/uL (2.0-7.7); Basophil# 0.11 X10^3/uL; Basophil% 1.6 % (0-1); Eosinophil# 0.25 X10^3/uL; Eosinophils% 3.7 % (0-5); Hematocrit 36.4 % (40-54); Hemoglobin 11.8 g/dL (13.0-16.5); Lymphocyte # 2.59 X10^3/ul (0.83-4.51); Mean Corp Hgb Conc 32.4 g/dL (32-36); Mean Corpuscular Volume 89.4 fL (80-94); Mean Platelet Vol. 10.6 fl (6.2-12.0); Monocyte# 0.63 X10^3/uL; Monocyte% 9.2 % (0-10); NRBC Flagged by Analyzer 0 % (0-5); Neutrophil # 3.22 X10^3/uL (2.7-7.7); Neutrophil % 47.2 % (47-70); Platelet Count 359 K/mm3 (150-450); RBC Distribution Width CV 13.2 % (11.6-14.6); RBC Distribution Width SD 43.6 fl (35.1-43.9); Red Blood Count 4.07 M/mm3 (4.6-6.2); White Blood Count 6.8 K/mm3 (4.4-11.0)
[2024-01-06 12:03] LABS: Protein, Urine (Random) 215.7 mg/dL (<11.9); Protein:Creat Ratio 3021 mg/g CRE (0-200)
[2024-01-06 12:15] LABS: Albumin, Serum 3.2 g/dL (3.2-5.0); BUN 36 mg/dL (7-18); BUN/Creat Ratio 8.8 RATIO (10-20); Chloride 117 mmol/L (98-107); Cholesterol 166 mg/dL (200); Creatinine, Serum 4.11 mg/dL (0.70-1.30); EST Glomerular Filtration Rate 18 mL/min (>60); Est Glom Filt Rate - Afr Amer 22 mL/min (>60); Glucose 131 mg/dL (74-106); High Density Lipoprotein 46 mg/dL; Phosphorus 4.1 mg/dL (2.5-4.9); Potassium 4.8 mmol/L (3.5-5.1); Sodium Level 144 mmol/L (136-145); Triglycerides 97 mg/dL; Very Low Density Lipoprotein 19 mg/dL (5-40)
== END | disposition home or self-care (01) ==
LOC: LAB 10:29
PROVIDERS: PCP Internal Medicine; Referring Provider Nurse Practitioner Family; Visit Provider Nurse Practitioner Family
DX: N18.4 Chronic kidney disease, stage 4 (severe) (principal)
CPT/HCPCS: 36415; 80061; 80069; 82570; 84156; 85025

== ENCOUNTER → 2024-04-06 | Outpatient (CLI) | payer MEDICAID, SELFPAY ==
[2024-04-06 11:30] LABS: Hematocrit 33.2 % (40-54); Hemoglobin 10.7 g/dL (13.0-16.5); Mean Corp Hgb Conc 32.2 g/dL (32-36); Mean Corpuscular Hgb 29.6 pg (27.0-32.0); Mean Platelet Vol. 10.6 fl (6.2-12.0); Platelet Count 318 K/mm3 (150-450); RBC Distribution Width CV 13.7 % (11.6-14.6); RBC Distribution Width SD 46.9 fl (35.1-43.9); Red Blood Count 3.61 M/mm3 (4.6-6.2); White Blood Count 7.9 K/mm3 (4.4-11.0)
[2024-04-06 12:33] LABS: Albumin, Serum 3.6 g/dL (3.2-5.0); BUN 38 mg/dL (7-18); BUN/Creat Ratio 7.2 RATIO (10-20); Chloride 111 mmol/L (98-107); Creatinine, Serum 5.27 mg/dL (0.70-1.30); EST Glomerular Filtration Rate 14 mL/min (>60); Est Glom Filt Rate - Afr Amer 16 mL/min (>60); Glucose 208 mg/dL (74-106); Phosphorus 3.7 mg/dL (2.5-4.9); Potassium 5.3 mmol/L (3.5-5.1); Sodium Level 135 mmol/L (136-145)
== END | disposition home or self-care (01) ==
LOC: LAB 11:06
PROVIDERS: PCP Internal Medicine; Referring Provider Internal Medicine Nephrology; Visit Provider Internal Medicine Nephrology
DX: N18.4 Chronic kidney disease, stage 4 (severe) (principal)
CPT/HCPCS: 36415; 80069; 82570; 85027

== ENCOUNTER → 2024-04-14 | Outpatient (CLI) | payer MEDICAID, SELFPAY ==
[2024-04-14 13:41] LABS: Hepatitis B Surface Antigen Non-Reactive (Nonreactive)
[2024-04-16 20:08] LABS: Hepatitis B Core Ab Total Negative (Negative); QNTFERON TB Mitogen Value > 10.00 IU/mL (.); QNTFERON TB Nil Value 0.01 IU/mL (.); QNTFERON TB1+ Ag Value 0 IU/mL (.); QNTFERON TB2+ Ag Value 0 IU/mL (.); QNTIFERON TB Positive Criteria Negative (Negative)
== END | disposition home or self-care (01) ==
LOC: LAB 11:42
PROVIDERS: PCP Internal Medicine; Referring Provider Internal Medicine Nephrology; Visit Provider Internal Medicine Nephrology
DX: N18.5 Chronic kidney disease, stage 5 (principal)
CPT/HCPCS: 36415; 86480; 86704; 87340

== ENCOUNTER 2024-04-15 08:11 | Day surgery (SDC) | payer MEDICAID, SELFPAY ==
[2024-04-14 08:01] VITALS: BMI 22.8
[2024-04-15 08:39] LABS: Hematocrit 32.8 % (40-54); Hemoglobin 10.6 g/dL (13.0-16.5); Mean Corp Hgb Conc 32.3 g/dL (32-36); Mean Corpuscular Hgb 29.9 pg (27.0-32.0); Mean Corpuscular Volume 92.7 fL (80-94); Platelet Count 281 K/mm3 (150-450); RBC Distribution Width CV 13.7 % (11.6-14.6); RBC Distribution Width SD 47.1 fl (35.1-43.9); Red Blood Count 3.54 M/mm3 (4.6-6.2); White Blood Count 7.1 K/mm3 (4.4-11.0)
[2024-04-15 08:57] LABS: Anion Gap 4 (5-15); BUN 29 mg/dL (7-18); Chloride 114 mmol/L (98-107); Creatinine, Serum 4.85 mg/dL (0.70-1.30); EST Glomerular Filtration Rate 15 mL/min (>60); Est Glom Filt Rate - Afr Amer 18 mL/min (>60); Estimated Creatinine Clearance 18.48 ml/min; Glucose 105 mg/dL (74-106); Potassium 4.8 mmol/L (3.5-5.1); Sodium Level 140 mmol/L (136-145)
--- NOTE | 2024-04-15 15:17 | PCM.OPRPT ---
Report of Operation Date of Procedure: 04/15/24 Pre-Operative Diagnosis: CKD Post-Operative Diagnosis: same Surgery/Procedure Performed:: right IJ tunneled catheter placement Surgeon: Luiz Persaud Type of Anesthesia: Local and Sedation,Conscious Estimated Blood Loss (mL): 5 Description of Procedure: HPI: Patient is a 33-year-old male with chronic kidney disease who is eminently going to be proceeding onto dialysis. He presents now for a fairly urgent placement of tunneled catheter to avoid need for admission prior to initiating his dialysis sessions. Description procedure: Verification correct patient procedure site patient was taken to Repair Table Operator where he was positioned prepped and draped in usual sterile fashion. Pulm upon sedation administered Versed and fentanyl. Ultrasound used to evaluate the right internal jugular vein which was patent and normal caliber with no evidence of prior thrombus or scarring. Skin overlying the vessel was anesthetized 1% lidocaine the vessel accessed with micropuncture needle wire under ultrasound guidance. This was then exchanged for a micropuncture sheath through which the starter wire for the tunneled catheter was advanced. The micropuncture sheath was then withdrawn and serial dilation performed followed by the peel-away sheath which was advanced and positioned into the superior vena cava. The catheter was then held over the chest wall and positioning confirmed under fluoroscopy in order to determine the counterincision for the tunnel. Skin incision was then made on the superior aspect of the chest wall and the tunneling device secured to the catheter and then pulled from the counterincision up to the jugular access incision. The catheter was then advanced through the peel-away sheath which was then withdrawn. Positioning was confirmed to be within the right atrium with fluoroscopy. The vena puncture site was then closed with 4-0 Vicryl and Dermabond. Dry sterile dressing was then applied to the catheter tunnel site. The catheter lumens were then flushed with concentrated heparin 1.6 cc each and then capped. Patient was then awake from sedation taken the recovery room with plans to discharge to home. Grafts/Implants Used: 19 cm straight
--- NOTE | 2024-04-16 07:39 | PCM.HP.STD ---
HPI - General HPI Narrative AMIE WATSON, is a 33 M who presents with CKD, nearing need for dialysis. He is long standing diabetic and has HTN. No prior need for HD, no arm/clavicle fracture, no central lines or picc lines. No anticoagulation. [facility] Medical History Chronic kidney disease (CKD) stage G4/A1, severely decreased glomerular filtration rate (GFR) between 15-29 mL/min/1.73 square meter and albuminuria creatinine ratio less than 30 mg/g CKD (chronic kidney disease) stage 4, GFR 15-29 ml/min Persistent microalbuminuria due to type 1 diabetes mellitus Vitamin deficiency Vision problem Stomach ulcer Neuropathy High cholesterol HTN (hypertension) Bone fracture Anxiety with depression Diabetes mellitus type 1 Home Medications ?Medication ?Instructions ?Recorded ?Last Taken ?Type blood sugar diagnostic (OneTouch #120 ea 07/09/18 Unknown Rx Ultra Blue Test Strip) pen needle, diabetic 32 gauge x #150 ea 09/26/21 Unknown Rx 5/32 (BD Ultra-Fine Kalie Pen Needle) insulin aspart U-100 100 unit/mL 100 unit continuous subcutaneous 03/13/23 Unknown Rx subcutaneous solution (Novolog infusion .continuous #30 mL U-100 Insulin aspart) cholecalciferol (vitamin D3) 50 50 mcg PO DAILY #90 caps 09/09/23 Unknown Rx mcg (2,000 unit) capsule amlodipine 10 mg tablet 10 mg PO DAILY #90 tabs 10/07/23 04/15/24 Rx metoprolol succinate 25 mg 75 mg (3 x 25 mg) PO DAILY #270 10/07/23 04/13/24 Rx tablet,extended release 24 hr tabs empagliflozin 25 mg tablet 25 mg PO DAILY #30 tabs 03/23/24 04/13/24 Rx (Jardiance) hydralazine 25 mg tablet 25 mg PO TID 04/09/24 04/15/24 History Allergy/AdvReac Type Severity Reaction Status Date / Time shellfish derived Allergy Swelling Verified 04/09/24 13:47 sulfamethoxazole (From Allergy Itching Verified 04/09/24 13:47 Bactrim) trimethoprim (From Bactrim) Allergy Itching Verified 04/09/24 13:47 Family History Unknown Arthritis Diabetes Hypertension High cholesterol Kidney stones Grandmother Diabetes Other Alcohol abuse Surgical History History of tonsillectomy L femur repair Social History Smoking Status: Former smoker Tobacco: How many years used: 13 alcohol intake: never substance use type: does not use what type of physical activity do you participate in: none ROS Constitutional Constitutional: Denies chills, fever(s), frequent falls, lethargy or weakness Eyes Eyes: Denies blind spots, change in vision or loss of vision ENT HEENT: Denies bleeding gums, hoarseness or sore throat Cardiovascular Cardiovascular: Denies abdominal pain, bluish discoloration of hand/feet, chest pain with activity, claudication, cold extremities, cyanosis, dyspnea on exertion, erythema on extremities, irregular heart rhythm, leg edema, leg ulcers, numbness in extremities or weakness in extremities Respiratory/Chest Respiratory/Chest: Denies cough, excessive phlegm production, shortness of breath at rest, shortness of breath with exertion or wheezing Gastrointestinal Gastrointestinal: Denies anorexia, change in stool character, constipation, diarrhea, melena or rectal bleeding Genitourinary Genitourinary: Denies dysuria or hematuria Musculoskeletal Musculoskeletal: Denies abnormal gait Integumentary Integumentary: Reports other Details: ; Denies erythema, non-healing lesions or wounds Neurologic Neurologic: Denies abnormal speech, focal weakness, headache(s), loss of vision, numbness, paresthesias or sensory deficit Hematologic/Lymphatic Hematologic/Lymphatic: Denies easy bleeding, easy bruising or lymphadenopathy Vital Signs Vital Signs Vital Signs: Weight Weight: 133 lb Body Mass Index (BMI) 22.8 Physical Exam Const alert, oriented x3, no apparent distress and healthy appearing General Appearance: cooperative; Negative for combative or lethargic Orientation / Consciousness: awake Exam Limitations: no limitations HEENT Head and Scalp: normocephalic and atraumatic Eyes EOMs intact bilaterally General Eye: normal appearance of both eyes Neck full ROM, no lymphadenopathy and thyroid normal General: trachea midline; Negative for lymphadenopathy or tenderness Thyroid: thyroid normal Lymph Lymphatic: Negative for no lymphadenopathy noted Resp normal respiratory effort and no use of accessory muscles Effort and Inspection: Negative for labored, stridor or audible wheezes Cardio regular rate and regular rhythm Back/Spine Cervical Spine: cervical ROM normal Extremity full ROM, normal capillary refill and no clubbing, cyanosis or edema Skin no rashes or lesions noted and no wounds Neuro oriented x3, CN's II-XII intact bilaterally, no focal motor deficits and no sensory deficits noted Psych thought process normal, cooperative, affect normal, speech normal and activity/motor behavior normal Results Lab / Micro Data 04/15/24 08:27 04/15/24 08:27 Labs: Laboratory Results - last 24 hr 04/15/24 08:27: WBC 7.1, RBC 3.54 L, Hgb 10.6 L, Hct 32.8 L, MCV 92.7, MCH 29.9, MCHC 32.3, RDW Std Deviation 47.1 H, RDW Coeff of Alan 13.7, Plt Count 281, MPV 10.0, Sodium 140, Potassium 4.8, Chloride 114 H, Carbon Dioxide 22.0, Anion Gap 4 L, BUN 29 H, Creatinine 4.85 H, Estim Creat Clear Calc 18.48, Est GFR (MDRD) Af Amer 18 L, Est GFR (MDRD) Non-Af 15 L, BUN/Creatinine Ratio 6.0 L, Glucose 105, Calcium 9.0 Assessment & Plan Assessment/Plan (1) Chronic kidney disease (CKD) stage G4/A1, severely decreased glomerular filtration rate (GFR) between 15-29 mL/min/1.73 square meter and albuminuria creatinine ratio less than 30 mg/g: PLAN: -right IJ catheter
== END 2024-04-15 15:45 | disposition home or self-care (01) ==
PROVIDERS: PCP Internal Medicine; Referring Provider Surgery Trauma Surgery; Visit Provider Surgery Trauma Surgery
DX: Z45.2 Encounter for adjustment and management of vascular access device (principal); N18.4 Chronic kidney disease, stage 4 (severe); E10.22 Type 1 diabetes mellitus with diabetic chronic kidney disease; E10.40 Type 1 diabetes mellitus with diabetic neuropathy, unspecified; Z87.891 Personal history of nicotine dependence; E78.00 Pure hypercholesterolemia, unspecified; Z79.84 Long term (current) use of oral hypoglycemic drugs; I12.9 Hypertensive chronic kidney disease with stage 1 through stage 4 chronic kidney disease, or unspecified chronic kidney disease
CPT/HCPCS: 36415; 36558; 76937; 77001; 80048; 85027; 99152; 99153; C1894; J7040; J2405

== ENCOUNTER → 2024-06-25 | Outpatient (CLI) | payer MEDICAID, SELFPAY ==
--- NOTE | 2024-06-25 08:48 | VDUE_ITS ---
Reason For Study: Pre op AVF creation Right Arm Left Arm Right Brachial artery diameter 3.4 x 3.6 mm. Left Brachial artery diameter 3.8 x 4.1 mm. Right Brachial artery waveform is Left Brachial artery waveform is triphasic . triphasic . Distal Radial artery diameter 1.8 x 1.8 mm. Distal Radial artery diameter 1.7 x 1.6 mm. Distal Radial artery waveform is triphasic. Distal Radial artery waveform is triphasic. Cephalic Vein at distal forearm measures 1.5 Cephalic Vein at distal forearm measures 2.1 x 2.0 mm. x 2.5 mm. Cephalic Vein at mid forearm measures 1.8 x Cephalic Vein at mid forearm measures 2.1 x 1.8 mm. 2.0 mm. Cephalic Vein proximal forearm measures 2.4 Cephalic Vein proximal forearm measures 2.3 x 2.6 mm. x 2.5 mm. Cephalic Vein distal upper arm measures 1.7 Cephalic Vein distal upper arm measures 1.8 x 1.9 mm. x 1.8 mm. Cephalic Vein at mid upper arm measures 1.8 Cephalic Vein at mid upper arm measures 2.2 x 1.6 mm. x 2.5 mm. Cephalic Vein at proximal upper arm measures Cephalic Vein at proximal upper arm measures 2.2 x 2.2 mm. 2.0 x 1.9 mm. Proximal Basilic vein measures 2.2 x 2.2 mm. Proximal Basilic vein measures 2.0 x 2.1 mm. Mid Basilic vein measures 2.5 x 2.4 mm. Mid Basilic vein measures 1.8 x 2.0 mm. Distal Basilic vein measures 2.1 x 2.3 mm. Distal Basilic vein measures 1.6 x 1.8 mm. VL/Dialysis Vein Map PRE-OP BILAT Interpretation Summary Bilateral upper extremity arteries patent with normal waveforms and measurement s above Bilateral upper extremity veins patent with easements above. Ordering Physician: Jazmyn Rodriguez Referring Physician: Holley Roach M.D. Performed By: Verenice Silverman RVT ???
== END | disposition home or self-care (01) ==
LOC: CVS 08:43
PROVIDERS: PCP Internal Medicine; Referring Provider Physician Assistant; Visit Provider Physician Assistant
DX: Z01.818 Encounter for other preprocedural examination (principal); N18.5 Chronic kidney disease, stage 5
CPT/HCPCS: 93985

== ENCOUNTER 2024-07-28 09:18 | Day surgery (SDC) | payer MEDICAID, SELFPAY ==
[2024-07-28] VITALS (9 sets, daily range): BP systolic 84–126; BP diastolic 57–95; PULSE 82–85; RESP 16–18; TEMP 35.9–36.8; O2SAT 98–100; BMI 20.9
--- NOTE | 2024-07-28 09:44 | PCM.PRE.AN2 ---
ASA Classification* ASA Classification ASA Classification: 3 Assessment & Plan Anesthesia* Anesthesia Assessment Anesthesia Assessment: Discussed sedation and/or anesthesia options, risks, benefits, and alternatives with patient/parents/legal guardian/POA. Questions invited. The patient/parents/legal guardian/POA seems to understand and agrees to proceed with anesthesia plan. Reviewed the physical assessment, medical history, allergy history and patient home medications list prior to surgery/procedure/anesthetic and documented any changes. Performed airway and anesthesia risk assessments. Anesthesia Type Anesthesia Type: MAC (see written pre anesthesia record for full assessment) Anesthesia Focused Assessment* Airway Assessment Mouth opens: >3 cm Mallampati Score: II Focused Labs Anesthesia Preop lab: CBC WBC 7.1 K/mm3 (4.4-11.0) 04/15/24 08:27 RBC 3.54 M/mm3 (4.6-6.2) L 04/15/24 08:27 Hgb 10.6 g/dL (13.0-16.5) L 04/15/24 08:27 Hct 32.8 % (40-54) L 04/15/24 08:27 Plt Count 281 K/mm3 (150-450) 04/15/24 08:27 CHEMISTRY Potassium 4.8 mmol/L (3.5-5.1) 04/15/24 08:27 Sodium 140 mmol/L (136-145) 04/15/24 08:27 Magnesium 2.2 mg/dL (1.6-2.6) 01/03/23 10:58 Phosphorus 3.7 mg/dL (2.5-4.9) 04/06/24 11:12 BUN 29 mg/dL (7-18) H 04/15/24 08:27 Creatinine 4.85 mg/dL (0.70-1.30) H 04/15/24 08:27 Glucose 105 mg/dL (74-106) 04/15/24 08:27 POC Glucose 126 mg/dL (74-106) H 07/25/22 16:13 TSH 3.24 uIU/mL (0.358-3.74) 01/03/23 10:58 COAG Pre-Assessment Diagnosis/Proposed Procedure Planned Operative Procedure(s): LEFT ARM AV GRAFT PLACEMENT Anesthesia History Anesthesia History - lead database administrator: Anesthesia History - lead database administrator Hx Hospitalization No 07/23/24 14:53 Any Problems With Anesthesia No 07/23/24 14:53 Cholinesterase deficiency No 07/23/24 14:53 You/Your Family Experience No 07/23/24 14:53 fever (hyperthermia) with Relationship Recent Exposure to Contagious Disease Does patient have nerve No 07/23/24 14:53 stimulator Patient instructed to have device shut off --Does patient have Pacemaker or ICD? When Was Last Pacemaker Check QUESTION #4 FULL TEXT: You/Your Family Experience fever (hyperthermia) with Anesthesia Last Oral Intake Last Oral intake: Last Oral Intake NPO since Meds taken in AM with sips of water? Meds patient instructed to take am of surgery PONV PONV - lead database administrator: PONV - lead database administrator Female No 07/23/24 14:53 HX of Motion Sickness No 07/23/24 14:53 HX of N/V After Surgery No 07/23/24 14:53 Non-Smoker Yes 07/23/24 14:53 Duration of Surgery greater Yes 07/23/24 14:53 than 60 minutes Number of Risk Factors 2 07/23/24 14:53 PONV Score Moderate Risk 07/23/24 14:53 Height & Weight Height & Weight: Anesthesia: Height & Weight Height 5 ft 4 in 04/15/24 08:46 Respiratory Assessment Respiratory Assessment - lead database administrator: Respiratory Tract Infection Hx - lead database administrator Hx Respiratory Tract Infection No 07/23/24 14:53 STOP Sleep Apnea STOP Sleep Apnea - lead database administrator: STOP Sleep Apnea - lead database administrator Hx Hypertension Yes: CONTROLLED WITH MEDS 07/23/24 14:53 Hx Sleep Apnea No 07/23/24 14:53 CPAP BIPAP Do you snore loudly (louder No 07/23/24 14:53 than talking or can be heard Do you often feel tired/ Yes 07/23/24 14:53 fatigued/ sleepy during daytime? Has anyone observed you stop No 07/23/24 14:53 breathing during sleep? STOP Results Positive 07/23/24 14:53 QUESTION #5 FULL TEXT : Do you snore loudly (louder than talking or can be heard through closed doors)? Tobacco Use History Tobacco Use History - lead database administrator: Tobacco Use History - lead database administrator Tobacco Use Smoking Status Former smoker 07/23/24 14:53 Hx Tobacco Use Yes 07/23/24 14:53 Years Smoking Packs Smoked per Day Smoking Cessation Date was Yes - quit smoking within 15 07/23/24 14:53 within the last 15 years years Hx Smoking Cessation Date Hx Smoking Cessation No 07/23/24 14:53 Counseling Hematologic Medial History Hematologic Hx - lead database administrator: Hematologic Medical Hx - assurance senior Hx of Blood Transfusion No 07/23/24 14:53 Hx of Transfusion in last 3 No 07/23/24 14:53 Months Date of Last Transfusion (if within last 3 months) Ever experience any problems No 07/23/24 14:53 with transfusion(s)? Specify any problems Hx of Preganancy in last 3 N/A 07/23/24 14:53 Months Nurse Filling Out Transfusion DSCHRIBER 07/23/24 14:53 & Questions: Date: 07/23/24 07/23/24 14:53 Time: 14:55 07/23/24 14:53 Patient unable to answer at this time (ie. confused, unrespo /Reproduction History /Reproductive History - lead database administrator: /Reproductive Hx- lead database administrator Hx Now No 07/23/24 14:53 Gestational Age (in weeks): EDC: Hx Hx Para Hx Section SAB No 07/23/24 14:53 Active Medications Active Medications: Current Medications Generic Name Dose Route Start Last Admin Trade Name Freq PRN Reason Stop Dose Admin Cefazolin Sodium 2 gm/ Sodium 110 mls @ 150 mls/hr 07/28/24 11:15 Chloride IV 07/28/24 11:58 PREOP ONE Sodium Chloride 500 mls @ 0 mls/hr 07/28/24 09:[address] [facility] Medical History (Updated 07/23/24 @ 15:01 by Ashley Srinivasan) Wears glasses Depression Insulin dependent diabetes mellitus History of renal dialysis Dietary restriction Gastric reflux Former smoker Shortness of breath on exertion History of edema History of stress test CKD (chronic kidney disease) stage 4, GFR 15-29 ml/min Persistent microalbuminuria due to type 1 diabetes mellitus Stomach ulcer Neuropathy High cholesterol HTN (hypertension) Diabetes mellitus type 1 Home Medications ?Medication ?Instructions ?Recorded ?Last Taken ?Type insulin aspart U-100 100 unit/mL 100 unit continuous subcutaneous 03/13/23 Unknown Rx subcutaneous solution (Novolog infusion .continuous #30 mL U-100 Insulin aspart) amlodipine 10 mg tablet 10 mg PO DAILY #90 tabs 10/07/23 04/15/24 Rx empagliflozin 25 mg tablet 25 mg PO DAILY #30 tabs 03/23/24 04/13/24 Rx (Jardiance) hydralazine 25 mg tablet 25 mg PO TID 04/09/24 04/15/24 History metoprolol succinate 25 mg 75 mg (3 x 25 mg) PO DAILY #270 05/04/24 Unknown Rx tablet,extended release 24 hr tabs Allergy/AdvReac Type Severity Reaction Status Date / Time shellfish derived Allergy Swelling Verified 07/23/24 14:52 sulfamethoxazole (From Allergy Itching Verified 07/23/24 14:52 Bactrim) trimethoprim (From Bactrim) Allergy Itching Verified 07/23/24 14:52 Family History Unknown Arthritis Diabetes Hypertension High cholesterol Kidney stones Grandmother Diabetes Other Alcohol abuse Surgical History History of tonsillectomy L femur repair Social History Smoking Status: Former smoker Tobacco: How many years used: 13 alcohol intake: never substance use type: does not use what type of physical activity do you participate in: none Review of Systems (Anesthesia) ROS Narrative System reviewed and no additional complaints, except as documented.
[2024-07-28] MEDS: 0.9% Normal Saline (500mL Bag) 500 ML 15 ML IV (09:53)
[2024-07-28 09:56] LABS: Hematocrit 37.5 % (40-54); Mean Corpuscular Hgb 28.8 pg (27.0-32.0); Mean Corpuscular Volume 89.9 fL (80-94); Mean Platelet Vol. 10.7 fl (6.2-12.0); Platelet Count 253 K/mm3 (150-450); RBC Distribution Width CV 12.7 % (11.6-14.6); RBC Distribution Width SD 41.7 fl (35.1-43.9); Red Blood Count 4.17 M/mm3 (4.6-6.2); White Blood Count 6.6 K/mm3 (4.4-11.0)
[2024-07-28 10:05] LABS: Bedside Glucose 257 mg/dL (74-106)
[2024-07-28 10:12] LABS: Anion Gap 7 (5-15); BUN 22 mg/dL (7-18); BUN/Creat Ratio 4.9 RATIO (10-20); Calcium,Total 9.7 mg/dL (8.5-10.1); Chloride 97 mmol/L (98-107); Creatinine, Serum 4.53 mg/dL (0.70-1.30); EST Glomerular Filtration Rate 16 mL/min (>60); Est Glom Filt Rate - Afr Amer 20 mL/min (>60); Estimated Creatinine Clearance 18.32 ml/min; Glucose 279 mg/dL (74-106); Potassium 3.9 mmol/L (3.5-5.1); Sodium Level 134 mmol/L (136-145)
--- NOTE | 2024-07-28 13:35 | HP.PCM_ITS ---
History and Physical Allergies shellfish derived Allergy (Verified 07/02/24 15:29) Swellingsulfamethoxazole (From Bactrim) Allergy (Verified 07/02/24 15:29) Itchingtrimethoprim (From Bactrim) Allergy (Verified 07/02/24 15:29) Itching Medications ?Medication ?Instructions ?Recorded ?Confirmed ?Type insulin aspart U-100 100 unit/mL 100 unit continuous subcutaneous 03/13/23 07/02/24 Rx subcutaneous solution (Novolog infusion .continuous #30 mL U-100 Insulin aspart) amlodipine 10 mg tablet 10 mg PO DAILY #90 tabs 10/07/23 07/02/24 Rx empagliflozin 25 mg tablet 25 mg PO DAILY #30 tabs 03/23/24 07/02/24 Rx (Jardiance) hydralazine 25 mg tablet 25 mg PO TID 04/09/24 07/02/24 History metoprolol succinate 25 mg 75 mg (3 x 25 mg) PO DAILY #270 05/04/24 07/02/24 Rx tablet,extended release 24 hr tabs Have you fallen in the past year?: No PFSH Medical History CKD (chronic kidney disease) stage 4, GFR 15-29 ml/min Persistent microalbuminuria due to type 1 diabetes mellitus Vitamin deficiency Vision problem Stomach ulcer Neuropathy High cholesterol HTN (hypertension) Bone fracture Anxiety with depression Diabetes mellitus type 1 Surgical History History of tonsillectomy L femur repair Family History Unknown Arthritis Diabetes Hypertension High cholesterol Kidney stonesGrandmother DiabetesOther Alcohol abuse Social History Smoking Status: Former smoker Tobacco: How many years used: 13 alcohol intake: never substance use type: does not use what type of physical activity do you participate in: none HPI HPI HPI: AMIE WATSON, is a 34 M who presents to the office today for follow up discu ssion of AV access. He has had his vein mapping. Continues to use right IJ catheter without issues. Right hand dominant, no arm/rib/clavicle fractures, DVT, pacer, node dissection. ROS General General: Yes fatigue; No weight change, appetite, colon cancer, breast cancer or weakness HEENT HEENT: No difficulty swallowing, eye injury, eye surgery, swollen glands or hoarseness Endo Endocrine: Yes diabetes mellitus; No thyroid disease, thyroid cancer, Hair loss, heat intolerance or cold intolerance Skin Skin: No rash or changing moles Musc Musculoskeletal: No back problems, arthritis, rheumatoid arthritis, gout or joint pain Cardio Cardiovascular: Yes high blood pressure; No murmur, pacemaker, heart disease, atrial fibrillation, heart attack, heart stent, palpitations, shortness of breat with exertion or chest pain Psych Psychiatric: No depression, anxiety or hearing voices Resp Respiratory: No shortness of breath, No sleep apnea, No cough, No COPD, No asthma, No emphysema and No wheezing Gastro Gastrointestinal: No abdominal pain, No nausea or vomiting, No diarrhea, No constipation, No blood in stool, No acid reflux, No hemorrhoids, No ulcers, No gallbladder problem and No black,tarry stools Maged Hematologic: No blood thinners, No blood disorders, No bleeding, No anemia and No blood clots Neuro Neurologic: No system reviewed and no additional complaints, except as documented, No as per HPI, No abnormal gait, No abnormal hearing, No abnormal movements, No abnormal speech, No behavioral changes, No burning sensations, No confusion, No convulsions, No disequilibrium, No dizziness, No localized weakness, No frequent falls, No headache(s), No lack of coordination, No loss of vision, No memory loss, No numbness, No other visual disturbances, No radicular pain, No restless legs, No sensory deficit, No syncope, Yes tingling, No tremor(s), No weakness and No other Exam Const General: cooperative, healthy appearing, comfortable, no acute distress and well developed Nutritional Appearance: well nourished Orientation: alert, awake and oriented x3 HENMT Head: normocephalic and atraumatic Ears: hearing grossly normal bilaterally Nose: external nose normal Eyes General: appearance normal, both eyes and all related structures EOM: EOM intact bilaterally Neck Neck: normal visual inspection, full ROM, no lymphadenopathy and trachea midline Thyroid: thyroid normal Lymphatic: no lymphadenopathy noted Resp Effort & Inspection: normal respiratory effort, able to speak in complete sentences, symmetric chest movement, no audible wheezes, not labored, no stridor and no use of accessory muscles Cardio Rate: regular rate Rhythm: regular rhythm Pulses: brachial pulses present and radial pulses present Skin General: no rashes or lesions noted and no erythema Wounds: no wounds Neuro Cranial Nerves: CN's II-XI intact bilaterally and EOM intact bilaterally Speech: speech normal Gait: normal gait Motor: strength 5/5 throughout Sensory Exam: no sensory deficits noted Psych Appearance: grossly normal and well kempt Mental Status: mental status grossly normal Mood: congruent mood Speech and Movement: speech and movement normal Thought Content: normal Judgment: judgment good Coding Level of Care Code Off vis,est,level 3 Diagnoses ESRD (end stage renal disease) on dialysis N18.6; Z99.2 Assessment and Plan Assessment and Plan (1) ESRD (end stage renal disease) on dialysis: Status: Chronic Plan: -vein mapping reveals small brachial artery bilateral, inadequate [place] veins to support fistula -plan left AV graft with cadaver
[2024-07-28] MEDS: Cefazolin 2 GM in 0.9% Normal Saline (100mL Bag) 100 ML IV (13:49)
[2024-07-28] MEDS: Heparin Injection (Vial) 5,000 UNIT/ML VIAL 5000 UNIT (14:32)
[2024-07-28] MEDS: Bupivacaine 0.25% 30 ML Vial (14:32)
[2024-07-28] MEDS: Lidocaine 1% (20 ml mdv) 20 ML Vial (14:32)
[2024-07-28] MEDS: Heparin 10,000 UNITS/10 ML Vial 10000 UNITS (14:32)
--- NOTE | 2024-07-28 16:26 | PCM.OPRPT ---
Problems Associated Problem List Diagnoses (1) ESRD (end stage renal disease) on dialysis: Report of Operation Date of Procedure: 07/28/24 Pre-Operative Diagnosis: ESRD Post-Operative Diagnosis: same Surgery/Procedure Performed:: left upper arm AV graft with cadaver Surgeon: Luiz Persaud Type of Anesthesia: Local and MAC Estimated Blood Loss (mL): 25 Description of Procedure: HPI: Patient is a 34-year-old male with end-stage renal disease currently on dialysis. He had preoperative vein mapping which revealed no adequate [place] veins for fistula creation as well as a very diminutive brachial artery bilaterally. Given the size of the arterial inflow is felt that synthetic graft would place him at high risk for steal and/or graft thrombosis. He is taken now for left upper arm graft with cadaver femoral-popliteal artery. Description of procedure: Upon obtaining form consent and verification correct patient procedure site patient was taken to the operating where he was positioned prepped and draped in usual sterile fashion. Timeouts performed and moderate sedation administered by anesthesia. Skin overlying the brachial artery above the antecubital crease was anesthetized 1% lidocaine and transverse incision made. Bovie electrocautery was then used dissect down through subcutaneous tissue to level the fascia and the fascia was then incised. Self-retaining retractors were then placed in the wound and sharp section used to dissect free the brachial artery proximal and distal with care taken to identify and protect the adjacent nerve and vein structures. A right angle was used to place a vessel with proximal and distal we then turned our attention to the venous exposure. Skin overlying the brachial vein at the axilla was then anesthetized 1% lidocaine and longitudinal incision made. Bovie electrocautery was used dissect down through subcutaneous tissue until we visualize the fascia which was then incised and self-retaining retractor put in position. Sharp dissection then used to dissect free the neurovascular bundle and there were multiple very diminutive venous branches superficial to the nerves and artery and a satisfactory caliber brachial vein deep to the structures. Ultimately were able to gain exposure and dissect free the brachial vein proximal and distal and a right angle was placed vascular. A curved tunneler was then used to create a tunnel overlying the biceps muscle and the patient was in heparinized allowed to circulate for 3 minutes. Cadaver femoral-popliteal artery was then thawed per armored car guard's instructions and flushed to assess for sidebranch integrity. The brachial artery was then occluded with Vesseloops and longitudinal arteriotomy created 11 blade extended with Zapata scissors. The cadaver graft was then beveled to match the arteriotomy and anastomosis perform using a 6-0 Prolene in running fashion. After completing the suture line vessels were back flushed and the graft and then clamps removed. Satisfactory stasis was noted and the graft continue to have intact sidebranch integrity. The graft was then marked to maintain orientation and then secured to the tunneler and pulled through to the venous incision. The graft was then clamped and the brachial vein occluded with Vesseloops. A longitudinal venotomy was then created with leveling sound Zapata scissors. The graft was then cut to length and beveled to match the venotomy and anastomosis perform using 6-0 Prolene in a running fashion. Prior to make suture line vessels and graft were back flushed after completing suture line clamps removed and satisfactory stasis was noted. There is a palpable thrill in the graft and the outflow vein and biphasic radial artery signal with the wrist which only minimally augmented with the graft compression. The incision was then inspected for hemostasis and then closed with 3-0 Vicryl for Monocryl. Given the minimal amount of subcutaneous tissue overlying the graft of the incision over the arterial ecchymosis was reinforced with 3-0 nylon interrupted sutures. The patient was then awakened from sedation taken the recovery room with anticipated discharge to home.
--- NOTE | 2024-07-28 16:27 | DCINST_ITS ---
Discharge Instructions Diet Discharge Diet: No restrictions Activity Lifting Restrictions: do not lift > 20 lbs with left arm for 3 weeks Additional Activity Instructions:: do not submerge incision for 3 weeks Dressing / Incision Call your doctor if your incision/area has: Sudden Increased Bleeding, Increased Pain/ Swelling, Increased Redness and Foul Smelling Discharge Call your doctor if you observe: Fever of 101 or Higher, Coldness, Increased Pain and Numbness or Tingling Remove Dressing in: 2 days Cleanse incision/area with: Soap & Water Follow Up Care Test Results: Test results from this visit will be discussed in further detail at your follow- up appointment, if applicable. Discharge Plan Admission Attending Provider: Luiz Persaud Primary Care Provider: Holley Roach Instructions Print Language: [place] Discharge Orders/Prescriptions Prescriptions: New oxycodone 5 mg tablet 5 mg PO Q8H PRN (Reason: pain) 2 Days Qty: 6 0RF Continued insulin aspart U-100 [Novolog U-100 Insulin aspart] 100 unit/mL solution 100 unit continuous subcutaneous infusion .continuous MDD 100 Qty: 30 6RF Patient Comments: 0.5 unit per hour amlodipine 10 mg tablet 10 mg PO DAILY Qty: 90 3RF hydralazine 25 mg tablet 25 mg PO TID Jardiance 25 mg tablet 25 mg PO DAILY Qty: 30 5RF metoprolol succinate 25 mg tablet extended release 24 hr 75 mg PO DAILY Qty: 270 1RF Referrals / Follow Up: Holley Roach MD [Primary Care Provider] - Disposition Disposition (needs filled in before D/C Order can be placed): Home, Self Care
--- NOTE | 2024-07-28 16:50 | PCM.POST.ANE ---
Anesthesia: Postop Eval I Current Vital Signs Temperature: 98.3 F Pulse Rate: 82 Blood Pressure: 87/57 (map 68, asleep) Respiratory Rate: 16 Pulse Ox: 99 Oxygen Delivery Method: Room Air Assessment Airway patent: Yes Spontaneous unlabored respirations: Yes Mental status: Asleep nausea: No Vomiting: No Anesthesia Complication: No Fluid Hydration Crystalloid volume administer (ml): 200 Total IV fluid infused: 200 Progress Note Anesthesia document: Postop Eval 1 completed: Yes
--- NOTE | 2024-07-28 17:10 | POSTOPAN2_ITS ---
Anesthesia Postop Eval I Sum Postop Eval Completion status Anesthesia document: Postop Eval 1 completed: Yes Anesthesia Postop Eval I Summary Anesthesia Postop Eval I Summary: Anesthesia Postop Eval I: Assessment Summary Airway patent Yes 07/28/24 16:51 SERVICE [email or web address] Spontaneous unlabored Yes 07/28/24 16:51 SERVICE [email or web address] respirations Mental status Asleep 07/28/24 16:51 SERVICE [email or web address] nausea No 07/28/24 16:51 SERVICE [email or web address] Vomiting No 07/28/24 16:51 SERVICE DISMANTLERSOILA Anesthesia Postop Eval I: Fluid Summary Crystalloid volume administer 200 07/28/24 16:51 SERVICE [email or web address].[email or web address] (ml) Colloids volume administered ( ml) Blood Product volume administered (ml) Total IV fluid infused 200 07/28/24 16:51 SERVICE DISMANTLERSOILA Anesthesia Postop Eval I: Summary Notes Anesthesia Complication No 07/28/24 16:51 ADRI Anesthesia Complication Comment: Post-operative progress note Anesthesia: Postop Eval II Evaluation Mental status: Awake Pain Level: 0 nausea: No Vomiting: No
--- NOTE | 2024-07-28 17:10 | PCM.POSTANE2 ---
Anesthesia Postop Eval I Sum Postop Eval Completion status Anesthesia document: Postop Eval 1 completed: Yes Anesthesia Postop Eval I Summary Anesthesia Postop Eval I Summary: Anesthesia Postop Eval I: Assessment Summary Airway patent Yes 07/28/24 16:51 ELECTRICAL MACHINE BUILDER.[email or web address] Spontaneous unlabored Yes 07/28/24 16:51 ELECTRICAL MACHINE BUILDER.[email or web address] respirations Mental status Asleep 07/28/24 16:51 ELECTRICAL MACHINE BUILDER.MARIO nausea No 07/28/24 16:51 ELECTRICAL MACHINE BUILDER.MARIO Vomiting No 07/28/24 16:51 ELECTRICAL MACHINE BUILDERSOILA Anesthesia Postop Eval I: Fluid Summary Crystalloid volume administer 200 07/28/24 16:51 ELECTRICAL MACHINE BUILDER.MARIO (ml) Colloids volume administered ( ml) Blood Product volume administered (ml) Total IV fluid infused 200 07/28/24 16:51 ELECTRICAL MACHINE BUILDERSOILA Anesthesia Postop Eval I: Summary Notes Anesthesia Complication No 07/28/24 16:51 ADRI Anesthesia Complication Comment: Post-operative progress note Anesthesia: Postop Eval II Evaluation Mental status: Awake Pain Level: 0 nausea: No Vomiting: No
[2024-07-28] MEDS: oxyCODONE 5 MG Tablet PO (17:25)
== END 2024-07-28 18:05 | disposition home or self-care (01) ==
LOC: SDC 09:19 → AC 09:21
PROVIDERS: PCP Internal Medicine; Referring Provider Surgery Trauma Surgery; Visit Provider Surgery Trauma Surgery
PROC: (CPT 36830; principal; 2024-07-28 11:00)
DX: I12.0 Hypertensive chronic kidney disease with stage 5 chronic kidney disease or end stage renal disease (principal); N18.6 End stage renal disease; E10.22 Type 1 diabetes mellitus with diabetic chronic kidney disease; E10.40 Type 1 diabetes mellitus with diabetic neuropathy, unspecified; Z87.891 Personal history of nicotine dependence; E78.00 Pure hypercholesterolemia, unspecified; Z99.2 Dependence on renal dialysis; Z79.84 Long term (current) use of oral hypoglycemic drugs
CPT/HCPCS: 36830; 01780; J7040; 80048; 82962; 85027; A4648; J2405

== ENCOUNTER 2024-11-05 06:56 | Day surgery (SDC) | payer MEDICAID, SELFPAY ==
[2024-11-03 08:34] VITALS: BMI 21.9
--- NOTE | 2024-11-05 07:57 | PCM.HP.STD ---
HPI - General HPI Narrative AMIE WATSON, is a 34 M who presents with ESRD, currently with left arm AV graft that is working without concerns. He has a right IJ tunneled catheter he no longer is using. [facility] Medical History (Updated 09/17/24 @ 16:27 by ANGEL De Anda) Wears glasses Depression Insulin dependent diabetes mellitus History of renal dialysis Dietary restriction Gastric reflux Former smoker Shortness of breath on exertion History of edema History of stress test CKD (chronic kidney disease) stage 4, GFR 15-29 ml/min Persistent microalbuminuria due to type 1 diabetes mellitus Stomach ulcer Neuropathy High cholesterol HTN (hypertension) Diabetes mellitus type 1 Home Medications ?Medication ?Instructions ?Recorded ?Last Taken ?Type bupropion HCl 150 mg 24 hr tablet, 150 mg PO QAM #30 tabs 09/17/24 Unknown Rx extended release (Wellbutrin XL) insulin aspart U-100 100 unit/mL 100 unit continuous subcutaneous 10/08/24 Unknown Rx subcutaneous solution (Novolog infusion .continuous #30 mL U-100 Insulin aspart) amlodipine 10 mg tablet 10 mg PO DAILY #90 tabs 10/21/24 11/05/24 Rx metoprolol succinate 25 mg 75 mg (3 x 25 mg) PO DAILY #270 11/02/24 11/05/24 Rx tablet,extended release 24 hr tabs Allergy/AdvReac Type Severity Reaction Status Date / Time shellfish derived Allergy Swelling Verified 09/17/24 13:28 sulfamethoxazole (From Allergy Itching Verified 09/17/24 13:28 Bactrim) trimethoprim (From Bactrim) Allergy Itching Verified 09/17/24 13:28 Family History Unknown Arthritis Diabetes Hypertension High cholesterol Kidney stones Grandmother Diabetes Other Alcohol abuse Surgical History History of tonsillectomy L femur repair Social History Smoking Status: Former smoker Tobacco: How many years used: 13 alcohol intake: never substance use type: does not use what type of physical activity do you participate in: none ROS Constitutional Constitutional: Denies chills, fever(s), frequent falls, lethargy or weakness Eyes Eyes: Denies blind spots, change in vision or loss of vision ENT HEENT: Denies bleeding gums, hoarseness or sore throat Cardiovascular Cardiovascular: Denies abdominal pain, bluish discoloration of hand/feet, chest pain with activity, claudication, cold extremities, cyanosis, dyspnea on exertion, erythema on extremities, irregular heart rhythm, leg edema, leg ulcers, numbness in extremities or weakness in extremities Respiratory/Chest Respiratory/Chest: Denies cough, excessive phlegm production, shortness of breath at rest, shortness of breath with exertion or wheezing Gastrointestinal Gastrointestinal: Denies anorexia, change in stool character, constipation, diarrhea, melena or rectal bleeding Genitourinary Genitourinary: Denies dysuria or hematuria Musculoskeletal Musculoskeletal: Denies abnormal gait Integumentary Integumentary: Reports other Details: ; Denies erythema, non-healing lesions or wounds Neurologic Neurologic: Denies abnormal speech, focal weakness, headache(s), loss of vision, numbness, paresthesias or sensory deficit Hematologic/Lymphatic Hematologic/Lymphatic: Denies easy bleeding, easy bruising or lymphadenopathy Vital Signs Vital Signs Vital Signs: Weight Weight: 128 lb Body Mass Index (BMI) 21.9 Physical Exam Const alert, oriented x3, no apparent distress and healthy appearing General Appearance: cooperative; Negative for combative or lethargic Orientation / Consciousness: awake Exam Limitations: no limitations HEENT Head and Scalp: normocephalic and atraumatic Eyes EOMs intact bilaterally General Eye: normal appearance of both eyes Neck full ROM General: trachea midline Resp normal respiratory effort and no use of accessory muscles Effort and Inspection: Negative for labored, stridor or audible wheezes Cardio regular rate and regular rhythm Back/Spine Cervical Spine: cervical ROM normal Extremity full ROM, normal capillary refill and no clubbing, cyanosis or edema Skin no rashes or lesions noted and no wounds Neuro oriented x3, CN's II-XII intact bilaterally, no focal motor deficits and no sensory deficits noted Psych thought process normal, cooperative, affect normal, speech normal and activity/motor behavior normal Assessment & Plan Assessment/Plan (1) ESRD (end stage renal disease) on dialysis: PLAN: -remove catheter
--- NOTE | 2024-11-05 10:14 | PCM.OPRPT ---
Operative Report (Standard) Operative Information Date of Procedure: 11/05/24 Pre-Operative Diagnosis: ESRD, presence of tunneled catheter Post-Operative Diagnosis: same Surgery/Procedure Performed: removal tunneled right IJ catheter security and compliance project manager: No Type of Anesthesia: Local and MAC Procedure Start Time: 08:15 Procedure Stop Time: 08:45 Select all DRAINS/GRAFTS/IMPLANTS that apply: None Estimated Blood Loss: 5 Specimen collected: No Description of surgery: HPI: Patient is a 34-year-old male with end-stage renal disease currently on dialysis now via a left upper arm AV graft. He previously had been using his tunneled right IJ catheter which is no longer necessary. He presents now for catheter removal. Description of procedure: Upon obtaining form consent and verification correct patient procedure site the patient was seen in the [employer] where he was positioned prepped and draped in usual sterile fashion. Timeout was performed and conscious sedation ministered Versed and fentanyl. Skin and subcutaneous tissue along the tunnel was anesthetized 1% lidocaine. Using a hemostat the soft tissue through the tunnel was bluntly dissected up to the cuff and the hemostat used to bluntly dissect circumferentially around the cuff. The catheter continue to be fixed in position and was not able to be extracted. Further blunt dissection was performed but the catheter was unable to be freed from the surrounding soft tissue at the cuff. Counterincision was made over the cuff and blunt dissection used to dissect down to the catheter. There is significant amount of adjacent scar that was divided with the scissors circumferentially until the catheter was freed. It was then withdrawn and manual pressure held over the puncture site for 10 minutes until hemostasis was noted. The counterincision was then closed with a single 4-0 Ethilon horizontal mattress suture. Dry sterile dressing was then applied and the patient taken recovery area with plan discharged to home. Surgical Findings: see above Complications Complications: No
== END 2024-11-05 10:00 | disposition home or self-care (01) ==
PROVIDERS: PCP Internal Medicine; Referring Provider Surgery Trauma Surgery; Visit Provider Surgery Trauma Surgery
DX: I12.0 Hypertensive chronic kidney disease with stage 5 chronic kidney disease or end stage renal disease (principal); N18.6 End stage renal disease; Z79.4 Long term (current) use of insulin; E10.22 Type 1 diabetes mellitus with diabetic chronic kidney disease; E10.40 Type 1 diabetes mellitus with diabetic neuropathy, unspecified; Z87.891 Personal history of nicotine dependence; E78.00 Pure hypercholesterolemia, unspecified; Z99.2 Dependence on renal dialysis
CPT/HCPCS: 36589; 99152; 99153

== ENCOUNTER 2025-01-05 06:37 | Day surgery (SDC) | payer MEDICAID, SELFPAY ==
[2025-01-04 08:27] VITALS: BMI 21.4
--- NOTE | 2025-01-05 07:54 | PCM.HP.STD ---
HPI - General HPI Narrative AMIE WATSON, is a 34 M who presents with left upper arm AV graft with prolonged bleeding from venous return access site. Has been occurring for about 2 weeks, fairly consistently. No difficulty completing his HD sessions. [facility] Medical History Wears glasses Depression Insulin dependent diabetes mellitus History of renal dialysis Dietary restriction Gastric reflux Former smoker Shortness of breath on exertion History of edema History of stress test CKD (chronic kidney disease) stage 4, GFR 15-29 ml/min Persistent microalbuminuria due to type 1 diabetes mellitus Stomach ulcer Neuropathy High cholesterol HTN (hypertension) Diabetes mellitus type 1 Home Medications ?Medication ?Instructions ?Recorded ?Last Taken ?Type bupropion HCl 150 mg 24 hr tablet, 150 mg PO QAM #30 tabs 09/17/24 Unknown Rx extended release (Wellbutrin XL) insulin aspart U-100 100 unit/mL 100 unit continuous subcutaneous 10/08/24 Unknown Rx subcutaneous solution (Novolog infusion .continuous #30 mL U-100 Insulin aspart) amlodipine 10 mg tablet 10 mg PO DAILY #90 tabs 10/21/24 01/05/25 Rx metoprolol succinate 25 mg 75 mg (3 x 25 mg) PO DAILY #270 11/02/24 01/05/25 Rx tablet,extended release 24 hr tabs Allergy/AdvReac Type Severity Reaction Status Date / Time shellfish derived Allergy Swelling Verified 11/12/24 11:32 sulfamethoxazole (From Allergy Itching Verified 11/12/24 11:32 Bactrim) trimethoprim (From Bactrim) Allergy Itching Verified 11/12/24 11:32 Family History Unknown Arthritis Diabetes Hypertension High cholesterol Kidney stones Grandmother Diabetes Other Alcohol abuse Surgical History History of tonsillectomy L femur repair Social History Smoking Status: Former smoker Tobacco: How many years used: 13 alcohol intake: never substance use type: does not use what type of physical activity do you participate in: none ROS Constitutional Constitutional: Denies chills, fever(s), frequent falls, lethargy or weakness Eyes Eyes: Denies blind spots, change in vision or loss of vision ENT HEENT: Denies bleeding gums, hoarseness or sore throat Cardiovascular Cardiovascular: Denies abdominal pain, bluish discoloration of hand/feet, chest pain with activity, claudication, cold extremities, cyanosis, dyspnea on exertion, erythema on extremities, irregular heart rhythm, leg edema, leg ulcers, numbness in extremities or weakness in extremities Respiratory/Chest Respiratory/Chest: Denies cough, excessive phlegm production, shortness of breath at rest, shortness of breath with exertion or wheezing Gastrointestinal Gastrointestinal: Denies anorexia, change in stool character, constipation, diarrhea, melena or rectal bleeding Genitourinary Genitourinary: Denies dysuria or hematuria Musculoskeletal Musculoskeletal: Denies abnormal gait Integumentary Integumentary: Reports other Details: ; Denies erythema, non-healing lesions or wounds Neurologic Neurologic: Denies abnormal speech, focal weakness, headache(s), loss of vision, numbness, paresthesias or sensory deficit Hematologic/Lymphatic Hematologic/Lymphatic: Denies easy bleeding, easy bruising or lymphadenopathy Vital Signs Vital Signs Vital Signs: Weight Weight: 125 lb Body Mass Index (BMI) 21.4 Physical Exam Const alert, oriented x3, no apparent distress and healthy appearing General Appearance: cooperative; Negative for combative or lethargic Orientation / Consciousness: awake Exam Limitations: no limitations HEENT Head and Scalp: normocephalic and atraumatic Eyes EOMs intact bilaterally General Eye: normal appearance of both eyes Neck full ROM General: trachea midline Resp normal respiratory effort and no use of accessory muscles Effort and Inspection: Negative for labored, stridor or audible wheezes Cardio regular rate and regular rhythm Peripheral Pulses: brachial pulses present and radial pulses present Back/Spine Cervical Spine: cervical ROM normal Extremity full ROM, normal capillary refill and no clubbing, cyanosis or edema Skin no rashes or lesions noted and no wounds Neuro oriented x3, CN's II-XII intact bilaterally, no focal motor deficits and no sensory deficits noted Psych thought process normal, cooperative, affect normal, speech normal and activity/motor behavior normal Assessment & Plan Assessment/Plan (1) Dialysis AV fistula malfunction: QUALIFIERS: Encounter type: initial encounter Qualified Code(s): T82.590A - Other mechanical complication of surgically created arteriovenous fistula, initial encounter PLAN: -fistulagram
--- NOTE | 2025-01-05 12:17 | OP.PCM_ITS ---
Operative Report (Standard) Operative Information Date of Procedure: 01/05/25 Pre-Operative Diagnosis: malfunction of left upper extremity AV graft Post-Operative Diagnosis: same Surgery/Procedure Performed: Fistulagram with angioplasty/stent, distal malini stomosis AV graft IVUS left axillary vein, brachial vein, upper arm graft laboratory tech: No Type of Anesthesia: Local and Sedation,Conscious Procedure Start Time: 08:10 Procedure Stop Time: 09:10 Select all DRAINS/GRAFTS/IMPLANTS that apply: Implanted device Implanted device details: Bard Covera 8 x 40 mm Estimated Blood Loss: 9 Specimen collected: No Description of surgery: HPI: Patient is a 34-year-old male with previous left upper arm cadaver AV graft placement for dialysis access. This had been functioning well until the last several weeks where he had prolonged bleeding from the venous return access site after needle decannulation. He presents now for fistulogram with possible intervention. Description of procedure: Upon obtaining form consent and verification correct patient procedure site he was taken to the Cardiopulmonary Technologist where he was positioned prepped and draped in usual sterile fashion. Timeout was performed and conscious ideation administered Versed and fentanyl. Skin overlying the graft at the proximal aspect was anesthetized 1% lidocaine the vessel accessed ultrasound guidance with a micropuncture needle wire. This was then exchanged for a 7 Armenian sheath through which hand-injection digital subtraction fistulogram was performed including reflux into the arterial anastomosis and distal outflow to the atriocaval junction. Imaging revealed satisfactory gaston rial anastomosis with no evidence of stenosis. The graft itself was satisfactory in appearance with no luminal irregularity or pseudoaneurysm present. At the venous anastomosis there was a significant stenosis beginning at the distal graft and extending for approximately 2 cm to the outflow vein with some adjacent collateral formation. Distal to this the vein was large caliber with no significant stenosis with brisk contrast outflow unobstructed to the superior vena cava and ultimately the atrium. It was felt that the venous anastomosis stenosis was the etiology of his prolonged bleeding and that this placed his graft at risk for failure so the patient was in heparinized allowed to circulate for 3 minutes. A command 18 wire was then advanced traversing the area of stenosis and advancing into the axillary vein. Next an intravascular ultrasound probe was advanced to the axillary vein recorded pullback performed of the axillary vein, brachial vein, distal AV graft. This confirmed greater than 80% stenosis at the venous anastomosis for a length of approximately 1.5 to 2 cm. There is also provided reference vessel measurements and a 5 mm x 2 Bard conquest angioplasty balloon was then selected and advanced over the wire position at the lesion. It was then inflated to nominal for 2 inflations across the area of stenosis with no significant persistent waist. Given the location was felt that primary covered stenting was appropriate so the balloon was then withdrawn and a Bard Covera 8 mm x 40 covered stent was then advanced in position centered on the lesion with the distal edge ensured to remain proximal to the confluence with the brachial vein. Stent was then deployed and postdilated with a 7 mm x 4 Bard conquest angioplasty balloon with no significant waist in satisfactory stent expansion. Completion fistulogram revealed satisfactory resolution of the air stenosis with brisk contrast transit and no extravasation or dissection. The intravascular shunt probe was then readvanced recorded pullback performed across the stented segment which confirmed satisfactory stent to wall apposition with no residual area of stenosis. A 3-0 nylon pursestring was then placed at the access site and the sheath withdrawn followed by 5 minutes of manual pressure. At the inclusion the case patient had satisfactory stasis and a satisfactory thrill throughout the graft which was a change from the more pulsatile nature prior to the intervention. He was then taken recovery with plan discharged to home. Surgical Findings: See above Complications Complications: No
== END 2025-01-05 10:15 | disposition home or self-care (01) ==
PROVIDERS: PCP Internal Medicine; Referring Provider Surgery Trauma Surgery; Visit Provider Surgery Trauma Surgery
DX: T82.590A Other mechanical complication of surgically created arteriovenous fistula, initial encounter (principal); N18.4 Chronic kidney disease, stage 4 (severe); E10.40 Type 1 diabetes mellitus with diabetic neuropathy, unspecified; E10.22 Type 1 diabetes mellitus with diabetic chronic kidney disease; Z79.4 Long term (current) use of insulin; X58.XXXA Exposure to other specified factors, initial encounter; I12.9 Hypertensive chronic kidney disease with stage 1 through stage 4 chronic kidney disease, or unspecified chronic kidney disease; E78.00 Pure hypercholesterolemia, unspecified; Z99.2 Dependence on renal dialysis; Z79.899 Other long term (current) drug therapy; Z87.891 Personal history of nicotine dependence
CPT/HCPCS: 36902; 37252; 37253; 76937; 99152; 99153; C1753; C1769; C1874; C1894; Q9967; C1725

== ENCOUNTER → 2025-01-27 | Day surgery (SDC) | payer MEDICAID, SELFPAY ==
[2025-01-26 09:12] VITALS: BMI 22.1
--- NOTE | 2025-01-27 14:51 | PCM.OPRPT ---
Operative Report (Standard) Operative Information Date of Procedure: 01/27/25 Pre-Operative Diagnosis: Difficulty accessing left upper arm AV graft Post-Operative Diagnosis: Same, patent AV graft with no stenosis and brisk contrast transit. Hematoma adjacent to their prior access site efforts causing minimal lumen caliber reduction. Surgery/Procedure Performed: Fistulogram Intravascular ultrasound left axillary vein, brachial vein, AV graft optimization consultant: No Type of Anesthesia: Local and Sedation,Conscious Procedure Start Time: 10:00 Procedure Stop Time: 10:30 Select all DRAINS/GRAFTS/IMPLANTS that apply: None Estimated Blood Loss: 3 Specimen collected: No Description of surgery: HPI: Patient is a 34-year-old male with left upper arm AV graft that previously had increased venous pressures and underwent a fistulogram with angioplasty and stent of the venous anastomosis and brachial vein approximately 1 month prior. The graft had been working well until recently when they had difficulty with the venous access site and reported return of high venous pressures and difficulty drawing back on the access needle. He presents now for repeat fistulogram. Description of procedure: Upon obtaining form consent and verification correct patient procedure site patient was taken to the catheter is positioned prepped and draped in usual sterile fashion. Time was performed consultation administered Versed and fentanyl. Skin overlying the graft in the distal upper arm was anesthetized 1% lidocaine the vessel accessed under ultrasound guidance with micropuncture needle wire. This then exchanged for short 6 Romanian sheath through which hand-injection subtraction geography was performed of the entire the fistula circuit from the anterior anastomosis to the central venous system including the SVC and atriocaval junction. There is brisk contrast transit throughout with no stenosis identified. Reflux into the arterial system revealed widely patent anastomosis. There was some luminal irregularity at the location of their attempted venous return access sites. An 018 wire was then advanced traversing the venous outflow system and intravascular ultrasound probe advanced into the axillary vein and recorded pullback performed. This confirmed widely patent axillary brachial veins with no stenosis, patent previously placed stent with full stent expansion and no residual stenosis. At the location of the luminal irregularity there appeared to be some extraluminal hematoma likely from their troubled access efforts. There is minimal caliber decrease with stenosis less than 30% in all due to external compression. It was not felt to that this warranted intervention so a nylon pursestring suture was placed and the sheath withdrawn followed by 5 minutes of manual pressure. The patient was then taken the recovery with plan discharged to home. Surgical Findings: See above Complications Complications: No
== END | disposition home or self-care (01) ==
PROVIDERS: PCP Internal Medicine; Referring Provider Surgery Trauma Surgery; Visit Provider Surgery Trauma Surgery
DX: T82.598A Other mechanical complication of other cardiac and vascular devices and implants, initial encounter (principal); I12.0 Hypertensive chronic kidney disease with stage 5 chronic kidney disease or end stage renal disease; N18.6 End stage renal disease; E10.22 Type 1 diabetes mellitus with diabetic chronic kidney disease; Z79.4 Long term (current) use of insulin; X58.XXXA Exposure to other specified factors, initial encounter; Z99.2 Dependence on renal dialysis; Z95.828 Presence of other vascular implants and grafts; Z79.02 Long term (current) use of antithrombotics/antiplatelets; Z79.899 Other long term (current) drug therapy; Z87.891 Personal history of nicotine dependence
CPT/HCPCS: 36901; 37252; 37253; 76937; 99152; C1753; C1894; Q9967; C1769

== ENCOUNTER 2025-03-25 08:02 | Day surgery (SDC) | payer MEDICAID, SELFPAY ==
[2025-03-24 08:49] VITALS: BMI 20.8
--- NOTE | 2025-03-25 11:45 | PCM.HP.STD ---
HPI - General HPI Narrative AMIE WATSON, is a 34 M who presents with recurrent difficulty accessing his left upper arm AV graft. He states one particular tech frequently has issues while others often succeed. [facility] Medical History Wears glasses Depression Insulin dependent diabetes mellitus History of renal dialysis Dietary restriction Gastric reflux Former smoker Shortness of breath on exertion History of edema History of stress test CKD (chronic kidney disease) stage 4, GFR 15-29 ml/min Persistent microalbuminuria due to type 1 diabetes mellitus Stomach ulcer Neuropathy High cholesterol HTN (hypertension) Diabetes mellitus type 1 Home Medications ?Medication ?Instructions ?Recorded ?Last Taken ?Type insulin aspart U-100 100 unit/mL 100 unit continuous subcutaneous 10/08/24 Unknown Rx subcutaneous solution (Novolog infusion .continuous #30 mL U-100 Insulin aspart) amlodipine 10 mg tablet 10 mg PO DAILY #90 tabs 10/21/24 03/25/25 Rx clopidogrel 75 mg tablet (Plavix) 75 mg PO DAILY #90 tabs 01/05/25 01/27/25 Rx empagliflozin 10 mg tablet 10 mg PO DAILY 03/24/25 Unknown History (Jardiance) hydralazine 25 mg tablet 25 mg PO TID 03/24/25 Unknown History metoprolol succinate 100 mg 75 mg PO QDAY 03/24/25 03/25/25 History tablet,extended release 24 hr Allergy/AdvReac Type Severity Reaction Status Date / Time shellfish derived Allergy Swelling Verified 01/21/25 13:41 sulfamethoxazole (From Allergy Itching Verified 01/21/25 13:41 Bactrim) trimethoprim (From Bactrim) Allergy Itching Verified 01/21/25 13:41 Family History Unknown Arthritis Diabetes Hypertension High cholesterol Kidney stones Grandmother Diabetes Other Alcohol abuse Surgical History History of tonsillectomy L femur repair Social History Smoking Status: Former smoker Tobacco: How many years used: 13 alcohol intake: never substance use type: does not use what type of physical activity do you participate in: none ROS Constitutional Constitutional: Denies chills, fever(s), frequent falls, lethargy or weakness Eyes Eyes: Denies blind spots, change in vision or loss of vision ENT HEENT: Denies bleeding gums, hoarseness or sore throat Cardiovascular Cardiovascular: Denies abdominal pain, bluish discoloration of hand/feet, chest pain with activity, claudication, cold extremities, cyanosis, dyspnea on exertion, erythema on extremities, irregular heart rhythm, leg edema, leg ulcers, numbness in extremities or weakness in extremities Respiratory/Chest Respiratory/Chest: Denies cough, excessive phlegm production, shortness of breath at rest, shortness of breath with exertion or wheezing Gastrointestinal Gastrointestinal: Denies anorexia, change in stool character, constipation, diarrhea, melena or rectal bleeding Genitourinary Genitourinary: Denies dysuria or hematuria Musculoskeletal Musculoskeletal: Denies abnormal gait Integumentary Integumentary: Reports other Details: ; Denies erythema, non-healing lesions or wounds Neurologic Neurologic: Denies abnormal speech, focal weakness, headache(s), loss of vision, numbness, paresthesias or sensory deficit Hematologic/Lymphatic Hematologic/Lymphatic: Denies easy bleeding, easy bruising or lymphadenopathy Vital Signs Vital Signs Vital Signs: Weight Weight: 121 lb 4.068 oz Body Mass Index (BMI) 20.8 Physical Exam Const alert, oriented x3, no apparent distress and healthy appearing General Appearance: cooperative; Negative for combative or lethargic Orientation / Consciousness: awake Exam Limitations: no limitations HEENT Head and Scalp: normocephalic and atraumatic Eyes EOMs intact bilaterally General Eye: normal appearance of both eyes Neck full ROM General: trachea midline Resp normal respiratory effort, no use of accessory muscles and clear to auscultation bilaterally Effort and Inspection: Negative for labored, stridor or audible wheezes Cardio regular rate and regular rhythm Back/Spine Cervical Spine: cervical ROM normal Extremity full ROM, normal capillary refill and no clubbing, cyanosis or edema Skin no rashes or lesions noted and no wounds Neuro oriented x3, CN's II-XII intact bilaterally, no focal motor deficits and no sensory deficits noted Psych thought process normal, cooperative, affect normal, speech normal and activity/motor behavior normal Assessment & Plan Assessment/Plan (1) Dialysis AV fistula malfunction: QUALIFIERS: Encounter type: initial encounter Qualified Code(s): T82.590A - Other mechanical complication of surgically created arteriovenous fistula, initial encounter PLAN: -fistulagram
--- NOTE | 2025-03-25 13:46 | OP.PCM_ITS ---
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 He previously underwent angioplasty and stent of the distal venous anastomosis and since that time has had some further issues. A prior fistulogram for similar complaints was performed approximately 1 month prior with no stenosis identified. He returns now for repeat fistulogram given ongoing concerns with access. Description of procedure: Upon obtaining informed consent and verification of correct patient procedure site the patient was taken to the [employer] [facility]per where he was positioned prepped and draped in usual sterile fashion. Timeouts performed consultation administered Versed and fentanyl. Skin overlying the fistula was anesthetized with 1% lidocaine the vessel accessed under ultrasound guidance with a micropuncture needle wire. This then exchanged for micropuncture sheath. Hand-injection subtraction angiography of the graft and its venous outflow to the atriocaval junction was performed. This revealed adequate caliber graft with normal venous outflow with no stenosis or significant collateral vessels. The previously placed stent was widely patent with no evidence of restenosis. There was some luminal irregularity at the site of the venous return access location but no stenosis identified. The graft was then compressed distally and reflux into the arterial system performed which again revealed normal graft and normal proximal anastomosis as well as reflux into the brachial artery which was normal in caliber. Seeing no stenosis and no significant abnormalities it was felt that no intervention was warranted so a 3-0 Ethilon pursestring was placed at the access site and the sheath withdrawn followed by 5 minutes mini pressure. The patient was then taken recovery with plan discharged to home. Surgical Findings: See above Complications Complications: No
== END 2025-03-25 13:20 | disposition home or self-care (01) ==
PROVIDERS: PCP Internal Medicine; Referring Provider Surgery Trauma Surgery; Visit Provider Surgery Trauma Surgery
DX: T82.590A Other mechanical complication of surgically created arteriovenous fistula, initial encounter (principal); N18.4 Chronic kidney disease, stage 4 (severe); E10.22 Type 1 diabetes mellitus with diabetic chronic kidney disease; E10.40 Type 1 diabetes mellitus with diabetic neuropathy, unspecified; Z79.4 Long term (current) use of insulin; I12.9 Hypertensive chronic kidney disease with stage 1 through stage 4 chronic kidney disease, or unspecified chronic kidney disease; X58.XXXA Exposure to other specified factors, initial encounter; Z79.02 Long term (current) use of antithrombotics/antiplatelets; Z79.84 Long term (current) use of oral hypoglycemic drugs; Z79.899 Other long term (current) drug therapy; Z87.891 Personal history of nicotine dependence
CPT/HCPCS: 36901; 76937; 99152; C1894; Q9967